=== PATIENT | female | born 1955 | race African-American/Black ===

== ENCOUNTER 2019-05-15 12:35 | Emergency (ER) | payer OTHER ==
[~2019-05-15] VITALS: Ht 167.6 cm; Wt 70.0 kg
[~2019-05-15 12:35] MED LIST: CARI3CAP PO; CITA40TA12 PO; TRAZ-123 PO
[2019-05-15 13:39] VITALS: BP 177/86
[2019-05-15] MEDS ORDERED: METH4TAB2 PO (14:17)
[2019-05-15] MEDS ORDERED: CYCL10TA2 PO (14:17)
[2019-05-15] MEDS ORDERED: DICL50TA2 PO (14:17)
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
== END 2019-05-15 14:28 | disposition home or self-care (01) ==
LOC: ER 12:35
DX: M54.5 Low back pain (principal); M79.18 Myalgia, other site; G89.11 Acute pain due to trauma; Z88.5 Allergy status to narcotic agent; Z88.6 Allergy status to analgesic agent; V49.59XA Passenger injured in collision with other motor vehicles in traffic accident, initial encounter; Y93.89 Activity, other specified; Y92.488 Other paved roadways as the place of occurrence of the external cause; Y99.8 Other external cause status
CPT/HCPCS: 99283

== ENCOUNTER 2020-08-11 10:19 | Inpatient (IN) | payer OTHER ==
[~2020-08-11] VITALS: Ht 165.1 cm; Wt 67.0 kg
[~2020-08-11 10:19] MED LIST changes: +CYCL10TA2 PO; +DICL50TA2 PO; +METH4TAB2 PO
--- NOTE | 2020-08-11 12:50 | RAD ---
XR CHEST 1V History: Short of breath Comparison: 07/23/2017 Technique: AP radiograph of the chest. Findings: The lungs are adequately and symmetrically inflated. No airspace consolidation, pleural effusion or p neumothorax. The cardiomediastinal silhouette and pulmonary vasculature are within normal limits. No acute osseous abnormality. Soft tissues are unremarkable. Impression: 1. No acute cardiopulmonary process. Electronically signed by: Elio Ruiz MD (08/11/2020 12:48 PM) [facility]
[2020-08-11 13:24] LABS: BASO % 0 % (0-3); EOS % 0 % (0-3); HEMATOCRIT 42.3 % (36.0-47.0); HEMOGLOBIN 14.6 g/dL (12.0-15.5); LYMPH # 0.7 x10^3/uL (1.0-4.8); LYMPH % 14 % (24-48); MEAN CORPUSCULAR HEMOGLOBIN 29 pg (25-35); MEAN CORPUSCULAR HGB CONC 35 g/dL (31-37); MEAN CORPUSCULAR VOLUME 84 fL (79-100); MONO # 0.5 x10^3/uL (0.0-1.1); MONO % 9 % (0-9); NEUT # 3.9 x10^3/uL (1.8-7.7); NEUT % 77 % (31-73); PLATELET COUNT 217 x10^3/uL (140-400); RED BLOOD COUNT 5.02 x10^6/uL (3.50-5.40); RED CELL DISTRIBUTION WIDTH 12.9 % (11.5-14.5); WHITE BLOOD COUNT 5.1 x10^3/uL (4.0-11.0)
[2020-08-11 13:32] LABS: INFLUENZA A PATIENT NEGATIVE (NEGATIVE); INFLUENZA B PATIENT NEGATIVE (NEGATIVE)
[2020-08-11 14:14] LABS: CALCIUM 8.4 mg/dL (8.5-10.1); GFR 67.5
[2020-08-11 14:22] LABS: ALBUMIN 3.1 g/dL (3.4-5.0); ALBUMIN/GLOBULIN RATIO 0.9 (1.0-1.7); TOTAL BILIRUBIN 0.3 mg/dL (0.2-1.0); TOTAL PROTEIN 6.5 g/dL (6.4-8.2)
[2020-08-11] MEDS ORDERED: HEPARIN for IV BOLUS 10,000 UNIT/10 ML VIAL. IV PRN (15:00)
[2020-08-11] MEDS ORDERED: HEPARIN 25,000UTS/250ML PREMIX 250 ML IV PRN (15:00)
[2020-08-11] MEDS ORDERED: CONTRAST GIVEN. MC PRN (15:15)
[2020-08-11] MEDS ORDERED: IOHEXOL 350 MG/ML 100 ML VIAL. IV ONE (15:15)
--- NOTE | 2020-08-11 15:39 | RAD ---
EXAM: CT chest with contrast - pulmonary embolus protocol CLINICAL HISTORY: chest pain/hemoptysis COMPARISON: None. TECHNIQUE: CT of the chest following the administration of intravenous contrast during the pulmonary arterial phase. Axial, coronal and sagittal reformatted images were generated including MIP images. ---PQRS compliance statement - One or more of the following individualized dose reduction techniques were utilized for this study: 1. Automated exposure control 2. Adjustment of the mA and/or kV according to patient size 3. Use of iterative reconstruction technique--- FINDINGS: CHEST: Diagnostic quality: Adequate contrast bolus although motion artifact limits evaluation. Pulmonary emboli: No pulmonary emboli to the level of the proximal subsegmental branches. More perip heral vessels are not well assessed. Right heart strain: None Pulmonary arteries: Normal in caliber. Heart is not enlarged. Apparent thickening of the left ventricular myocardium, left ventricular hyper trophy is suspected and can be correlated with echocardiogram. No pericardial effusion. No pleural ef fusion or pneumothorax. No axillary lymphadenopathy. Mediastinal and hilar lymphadenopathy. For example a employment program representative left hilar lymph node measures 1.6 x 1 cm. AP window lymph node measures 1.5 x 1.2 cm. Right hilar lymph node measures 1.3 x 1 cm. Precarinal lymph node measures 1.6 x 1.1 cm. Bilateral emphysematous changes are seen. Groundglass and patchy parenchymal opacities are seen promi nent in the lower lobes, lingula and middle lobe. No definite suspicious lung nodule or mass is seen. Visualized Upper abdomen: Unremarkable Bones: No aggressive osseous lesion is seen. IMPRESSION: 1. No evidence for acute pulmonary embolus to the level of the proximal subsegmental branches. More peripheral vessels are not well assessed. 2. Apparent thickening of the left ventricular myocardium, left ventricular hypertrophy is suspected and can be correlated with echocardiogram. 3. Groundglass and patchy parenchymal opacities, predominantly in the lower lobes, lingula and middl e lobe, suspicious for multifocal consolidative process such as pneumonia. Imaging follow-up to resol ution is recommended to exclude underlying mass. 4. Mediastinal and hilar lymphadenopathy is favored to be reactive given the parenchymal opacities h owever recommend close attention on follow-up. Electronically signed by: Yoav Jennings MD (08/11/2020 3:36 PM) [facility]
--- NOTE | 2020-08-11 15:52 | PHYS DOC ---
Past Medical History Past Medical History: Anxiety, Depression, Other Additional Past Medical Histor: SUICIDAL IDEATION/VISUAL/AUDITORY HALLUCIN ATIONS Past Surgical History: Oophorectomy Smoking Status: Current Every Day Smoker Additional Information: SMOKES 2 CIGARETTES A DAY Alcohol Use: Sober Drug Use: None Adult General Chief Complaint Chief Complaint: WEAKNESS/GENERALIZED HPI HPI Patient is a 65 year old female with a past medical history of anxiety and depression now presents emergency department complaining of new onset of cough. Patient states that over the last 3 days she developed worsening sensation of cough as nonproductive of any sputum but is also been associated with increase in station of shortness of breath. Patient states that over the last day she has developed lack of taste, anosmia and sensation of generalized achiness. Patient states that she is no longer comfortable at home and is feeling weak and having difficulty getting around. Denies any chest pain, nausea, vomiting, numbness or weakness. Review of Systems Review of Systems Constitutional: Denies fever or chills [] Eyes: Denies change in visual acuity, redness, or eye pain [] HENT: Denies nasal congestion or sore throat [] Respiratory: Denies cough or shortness of breath [] Cardiovascular: No additional information not addressed in HPI [] GI: Denies abdominal pain, nausea, vomiting, bloody stools or diarrhea [] : Denies dysuria or hematuria [] Musculoskeletal: Denies back pain or joint pain [] Integument: Denies rash or skin lesions [] Neurologic: Denies headache, focal weakness or sensory changes [] Endocrine: Denies polyuria or polydipsia [] All other systems were reviewed and found to be within normal limits, except as documented in this note. Current Medications Current Medications Current Medications Medications (Trade) Dose Ordered Sig/Brock Start Time Stop Time Status Last Admin Dose Admin Heparin Sodium (Porcine) (Heparin Sodium) 1,700 unit PRN Q6HRS PRN 08/11/20 15:00 Heparin Sodium/ Dextrose 250 ml @ 0 mls/hr CONT PRN 08/11/20 15:00 08/11/20 15:47 8.3 MLS/HR Info (CONTRAST GIVEN -- Rx MONITORING) 1 each PRN DAILY PRN 08/11/20 15:15 08/13/20 15:14 Iohexol (Omnipaque 350 Mg/ml) 90 ml 1X ONCE 08/11/20 15:15 08/11/20 15:16 DC 08/11/20 15:21 90 ML Allergies Allergies Allergies Coded Allergies Type Severity Reaction Last Updated Verified acetaminophen Allergy Intermediate 07/23/17 Yes hydrocodone Allergy Intermediate 07/23/17 Yes Physical Exam Physical Exam Constitutional: Well developed, well nourished, no acute distress, non-toxic appearance. [] HENT: Normocephalic, atraumatic, bilateral external ears normal, oropharynx moist, no oral exudates, nose normal. [] Eyes: PERRLA, EOMI, conjunctiva normal, no discharge. [] Neck: Normal range of motion, no tenderness, supple, no stridor. [] Cardiovascular:Heart rate regular rhythm, no murmur [] Lungs & Thorax: Bilateral breath sounds clear to auscultation [] Abdomen: Bowel sounds normal, soft, no tenderness, no masses, no pulsatile m asses. [] Skin: Warm, dry, no erythema, no rash. [] Back: No tenderness, no CVA tenderness. [] Extremities: No tenderness, no cyanosis, no clubbing, ROM intact, no edema. [] Neurologic: Alert and oriented X 3, normal motor function, normal sensory function, no focal deficits noted. [] Psychologic: Affect normal, judgement normal, mood normal. [] Current Patient Data Vital Signs Vital Signs Date Time Temp Pulse Resp B/P (MAP) Pulse Ox O2 Delivery O2 Flow Rate FiO2 08/11/20 14:58 82 131/70 (90) 93 Nasal Cannula 2.0 08/11/20 12:01 99.4 24 99.4 Lab Values Laboratory Tests Test 08/11/20 12:13 08/11/20 12:58 08/11/20 13:06 08/11/20 13:40 Glucose (Fingerstick) 112 mg/dL (70-99) H Influenza Type A Antigen Negative (NEGATIVE) Influenza Type B Antigen Negative (NEGATIVE) SARS-CoV-2 RNA (HOLLI) Positive (Negative) A White Blood Count 5.1 x10^3/uL (4.0-11.0) Red Blood Count 5.02 x10^6/uL (3.50-5.40) Hemoglobin 14.6 g/dL (12.0-15.5) Hematocrit 42.3 % (36.0-47.0) Mean Corpuscular Volume 84 fL (79-100) Mean Corpuscular Hemoglobin 29 pg (25-35) Mean Corpuscular Hemoglobin Concent 35 g/dL (31-37) Red Cell Distribution Width 12.9 % (11.5-14.5) Platelet Count 217 x10^3/uL (140-400) Neutrophils (%) (Auto) 77 % (31-73) H Lymphocytes (%) (Auto) 14 % (24-48) L Monocytes (%) (Auto) 9 % (0-9) Eosinophils (%) (Auto) 0 % (0-3) Basophils (%) (Auto) 0 % (0-3) Neutrophils # (Auto) 3.9 x10^3/uL (1.8-7.7) Lymphocytes # (Auto) 0.7 x10^3/uL (1.0-4.8) L Monocytes # (Auto) 0.5 x10^3/uL (0.0-1.1) Eosinophils # (Auto) 0.0 x10^3/uL (0.0-0.7) Basophils # (Auto) 0.0 x10^3/uL (0.0-0.2) D-Dimer (Umm) 0.90 ug/mlFEU (0.00-0.50) H Sodium Level 140 mmol/L (136-145) Potassium Level 4.0 mmol/L (3.5-5.1) Chloride Level 101 mmol/L (98-107) Carbon Dioxide Level 29 mmol/L (21-32) Anion Gap 10 (6-14) Blood Urea Nitrogen 7 mg/dL (7-20) Creatinine 1.0 mg/dL (0.6-1.0) Estimated GFR (Cockcroft-Gault) 67.5 BUN/Creatinine Ratio 7 (6-20) Glucose Level 103 mg/dL (70-99) H Calcium Level 8.4 mg/dL (8.5-10.1) L Total Bilirubin 0.3 mg/dL (0.2-1.0) Aspartate Amino Transferase (AST) 31 U/L (15-37) Alanine Aminotransferase (ALT) 17 U/L (14-59) Alkaline Phosphatase 46 U/L (46-116) Creatine Kinase 229 U/L (26-192) H Troponin I Quantitative 0.566 ng/mL (0.000-0.055) GT-Ldm-S-Type Natriuretic Peptide 31 pg/mL (0-124) Total Protein 6.5 g/dL (6.4-8.2) Albumin 3.1 g/dL (3.4-5.0) L Albumin/Globulin Ratio 0.9 (1.0-1.7) L Laboratory Tests 08/11/20 13:06 Laboratory Tests 08/11/20 13:40 EKG EKG [] Radiology/Procedures Radiology/Procedures EXAM: CT chest with contrast - pulmonary embolus protocol CLINICAL HISTORY: chest pain/hemoptysis COMPARISON: None. TECHNIQUE: CT of the chest following the administration of intravenous contrast during the pulmonary arterial phase. Axial, coronal and sagittal reformatted images were generated including MIP images. ---PQRS compliance statement - One or more of the following individualized dose reduction techniques were utilized for this study: 1. Automated exposure control 2. Adjustment of the mA and/or kV according to patient size 3. Use of iterative reconstruction technique--- FINDINGS: CHEST: Diagnostic quality: Adequate contrast bolus although motion artifact limits lidia luation. Pulmonary emboli: No pulmonary emboli to the level of the proximal subsegmental branches. More peripheral vessels are not well assessed. Right heart strain: None Pulmonary arteries: Normal in caliber. Heart is not enlarged. Apparent thickening of the left ventricular myocardium, left ventricular hypertrophy is suspected and can be correlated with echocardiogram. No pericardial effusion. No pleural effusion or pneumothorax. No axillary lymphadenopathy. Mediastinal and hilar lymphadenopathy. For example a sales representative consultant left hilar lymph node measures 1.6 x 1 cm. AP window lymph node measures 1.5 x 1.2 cm. Right hilar lymph node measures 1.3 x 1 cm. Precarinal lymph node measures 1.6 x 1.1 cm. Bilateral emphysematous changes are seen. Groundglass and patchy parenchymal opacities are seen prominent in the lower lobes, lingula and middle lobe. No definite suspicious lung nodule or mass is seen. Visualized Upper abdomen: Unremarkable Bones: No aggressive osseous lesion is seen. IMPRESSION: 1. No evidence for acute pulmonary embolus to the level of the proximal subsegmental branches. More peripheral vessels are not well assessed. 2. Apparent thickening of the left ventricular myocardium, left ventricular hypertrophy is suspected and can be correlated with echocardiogram. 3. Groundglass and patchy parenchymal opacities, predominantly in the lower lobes, lingula and middle lobe, suspicious for multifocal consolidative process such as pneumonia. Imaging follow-up to resolution is recommended to exclude underlying mass. 4. Mediastinal and hilar lymphadenopathy is favored to be reactive given the parenchymal opacities however recommend close attention on follow-up. Electronically signed by: Yoav Jennings MD (08/11/2020 3:36 PM) [facility] Course & Med Decision Making Course & Med Decision Making Pertinent Labs and Imaging studies reviewed. (See chart for details) 65-year-old female presenting the emergency department for new onset of constellation of symptoms most consistent with acute viral syndrome which does raise concern for COVID-19 pneumonia. Initial arrival patient noted to have normal oxygenation but will obtain chest x-ray and labs to make sure there is no need for additional work-up. Initial blood work did demonstrate mildly elevated troponin. Repeat EKG does show some lateral T wave inversions. Patient also noted to have a mildly elevated D-dimer so CT scan was obtained which does demonstrate groundglass opacities. Patient started on heparin drip for concern for NSTEMI and cardiology consultation was obtained. At this time will need to admit the patient for oxygen and monitoring as well as further cardiology evaluation. Dragon Disclaimer Dragon Disclaimer This electronic medical record was generated, in whole or in part, using a voice recognition dictation system. Departure Departure Impression: Primary Impression: NSTEMI (non-ST elevated myocardial infarction) Additional Impressions: COVID-19 Acute respiratory failure with hypoxia Disposition: ADMITTED INPATIENT Condition: STABLE Referrals: NO PCP (PCP) Problem Qualifiers VONNIE KELLEY MD Aug 11, 2020 15:52
--- NOTE | 2020-08-11 15:59 | PDOC2 ---
CARLOS ALLEN BUCKET TURNER 08/11/20 1559: CARDIAC CONSULT DATE OF CONSULT Date of Consult DATE: 08/11/20 TIME: 15:39 REASON FOR CONSULT Reason for Consult: eLEVATED TROPONIN REFERRING PHYSICIAN Referring Physician: Armin SOURCE Source: Chart review, Patient HISTORY OF PRESENT ILLNESS HISTORY OF PRESENT ILLNESS This is a 65 yo female admitted for complains of GI symptoms and cough. Reports of fever chills with associated nausea vomiting and diarrhea. Also + for anosmia and SOA. Also complains of sharp chest pain with associated coughing. Further test revealed +covid-19 per rapid test. No prior hx of CAD and significant for past ETOH and cocaine abuse. Also with weakness. She believed she got exposed to a friend who was noted positive several weeks ago. She also smokes tobacco , marijuana and cocaine and last use was 4 days ago. Denies any palpitations or dizziness. PAST MEDICAL HISTORY Cardiovascular: HTN, Hyperlipidemia Pulmonary: No pertinent hx CENTRAL NERVOUS SYSTEM: Other (No pertinent history) GI: No pertinent hx Heme/Onc: No pertinent hx Hepatobiliary: No pertinent hx Psych: Other (Anxiety, Depression, Psychosis (suicidal ideation, visual hallucination and auditory as well), Other (alcoholism)) Musculoskeletal: Osteoarthritis Rheumatologic: No pertinent hx Infectious disease: No pertinent hx ENT: No pertinent hx Renal/: No pertinent hx Endocrine: No pertinent hx Dermatology: No pertinent hx PAST SURGICAL HISTORY Past Surgical History: Other (oophrectomy) FAMILY HISTORY Family History: Heart Disease (mother) SOCIAL HISTORY Social History hx of ETOH and cocaine abuse Smoke: <1 pack per day Drugs: Cocaine, Marijuana Lives: with Family CURRENT MEDICATIONS CURRENT MEDICATIONS Current Medications Medications (Trade) Dose Ordered Sig/Brock Route PRN Reason Start Time Stop Time Status Last Admin Dose Admin Iohexol (Omnipaque 350 Mg/ml) 90 ml 1X ONCE IV 08/11/20 15:15 08/11/20 15:16 DC 08/11/20 15:21 ALLERGIES ALLERGIES: Coded Allergies: acetaminophen (Verified Allergy, Intermediate, 07/23/17) hydrocodone (Verified Allergy, Intermediate, 07/23/17) ROS Review of System 14 point ROS evaluated with pertinent positives noted per HPI PHYSICAL EXAM General: Alert, Oriented X3, Cooperative, No acute distress HEENT: Mucous membr. moist/pink Lungs: Other (diminiished) Heart: Regular rate (SR), Normal S1, Normal S2, Other (2/y ssytolic murmur to LLS border) Abdomen: No tenderness Extremities: No cyanosis, No edema Skin: No breakdown, No significant lesion Neuro: Normal speech, Sensation intact Psych/Mental Status: Mental status NL, Mood NL MUSCULOSKELETAL: Osteoarthritic changes both hands VITALS/I&O VITALS/I&O: Vital Signs Date Time Temp Pulse Resp B/P (MAP) Pulse Ox O2 Delivery O2 Flow Rate FiO2 08/11/20 14:58 82 131/70 (90) 93 Nasal Cannula 2.0 08/11/20 12:01 99.4 24 99.4 LABS Lab: Laboratory Tests Test 08/11/20 12:13 08/11/20 12:58 08/11/20 13:06 08/11/20 13:40 Glucose (Fingerstick) 112 mg/dL (70-99) H Influenza Type A Antigen Negative (NEGATIVE) Influenza Type B Antigen Negative (NEGATIVE) SARS-CoV-2 RNA (HOLLI) Positive (Negative) A White Blood Count 5.1 x10^3/uL (4.0-11.0) Red Blood Count 5.02 x10^6/uL (3.50-5.40) Hemoglobin 14.6 g/dL (12.0-15.5) Hematocrit 42.3 % (36.0-47.0) Mean Corpuscular Volume 84 fL (79-100) Mean Corpuscular Hemoglobin 29 pg (25-35) Mean Corpuscular Hemoglobin Concent 35 g/dL (31-37) Red Cell Distribution Width 12.9 % (11.5-14.5) Platelet Count 217 x10^3/uL (140-400) Neutrophils (%) (Auto) 77 % (31-73) H Lymphocytes (%) (Auto) 14 % (24-48) L Monocytes (%) (Auto) 9 % (0-9) Eosinophils (%) (Auto) 0 % (0-3) Basophils (%) (Auto) 0 % (0-3) Neutrophils # (Auto) 3.9 x10^3/uL (1.8-7.7) Lymphocytes # (Auto) 0.7 x10^3/uL (1.0-4.8) L Monocytes # (Auto) 0.5 x10^3/uL (0.0-1.1) Eosinophils # (Auto) 0.0 x10^3/uL (0.0-0.7) Basophils # (Auto) 0.0 x10^3/uL (0.0-0.2) D-Dimer (Umm) 0.90 ug/mlFEU (0.00-0.50) H Sodium Level 140 mmol/L (136-145) Potassium Level 4.0 mmol/L (3.5-5.1) Chloride Level 101 mmol/L (98-107) Carbon Dioxide Level 29 mmol/L (21-32) Anion Gap 10 (6-14) Blood Urea Nitrogen 7 mg/dL (7-20) Creatinine 1.0 mg/dL (0.6-1.0) Estimated GFR (Cockcroft-Gault) 67.5 BUN/Creatinine Ratio 7 (6-20) Glucose Level 103 mg/dL (70-99) H Calcium Level 8.4 mg/dL (8.5-10.1) L Total Bilirubin 0.3 mg/dL (0.2-1.0) Aspartate Amino Transferase (AST) 31 U/L (15-37) Alanine Aminotransferase (ALT) 17 U/L (14-59) Alkaline Phosphatase 46 U/L (46-116) Creatine Kinase 229 U/L (26-192) H Troponin I Quantitative 0.566 ng/mL (0.000-0.055) OP-Ahp-I-Type Natriuretic Peptide 31 pg/mL (0-124) Total Protein 6.5 g/dL (6.4-8.2) Albumin 3.1 g/dL (3.4-5.0) L Albumin/Globulin Ratio 0.9 (1.0-1.7) L Laboratory Tests 08/11/20 13:06 Laboratory Tests 08/11/20 13:40 ECHOCARDIOGRAM ECHOCARDIOGRAM <Conclusion> There is moderate concentric left ventricular hypertrophy. The left ventricular systolic function is normal and the ejection fraction is within normal range. The Ejection Fraction is 60-65%. There is normal LV segmental wall motion. The aortic valve is calcified with restricted leaflet motion. DATE: 07/24/17 1609 ASSESSMENT/PLAN ASSESSMENT/PLAN 1. Covid-19 pneumonia 2. Diarrhea/vomiting with fever and anosmia 3. HTN: no home meds 4. HLP: no meds 5. Hx of ETOH and cocaine abuse 6. NSTEMI: suspect type 2 initial troponin at 0.56 with associated covid-19 and cocaine abuse. CTA negative for PE. EKG SR with with LVH, no acute changes by comparison 7. Atypical CP: likely due to coughing 8. Hx of anxiety/depression and SI 9. Polysubstance abuse: marijuana and cocaine last use 4 days ago 10. Tobaccoism Recommendation 1. Lovenox x1. DC heparin. ASA 2. Trend troponin. TTE as an outpt 3. Covid-19 treatment oer PCP 4. Smoking cessation and lifestyle modification including abstinence from recreational drug use. 5. Supportive care. 6. MOnitor BP trend and will place on regimen per trend. LUCITA JOHNS MD 08/12/20 0932: CARDIAC CONSULT ASSESSMENT/PLAN ASSESSMENT/PLAN Patient seen and evaluated on 08/11/2020. I agree with our nurse practitioners assessment and plan. Covid-19 pneumonia. Continue as per guidelines. Lovenox started. HTN: Will start medications as needed. Hx of ETOH and cocaine abuse. Last use approximately 4 days ago. NSTEMI: suspect type 2 initial troponin at 0.56 with associated covid-19 and cocaine abuse. CTA negative for PE. EKG SR with with LVH, no acute changes by comparison. Outpatient echo as per Covid protocols. Hx of anxiety/depression CARLOS ALLEN BUCKET TURNER Aug 11, 2020 15:59 LUCITA JOHNS MD Aug 12, 2020 09:32
--- NOTE | 2020-08-11 16:29 | PDOC1 ---
History and Physical Date of Admission Date of Admission DATE: 08/11/20 TIME: 16:22 Identification/Chief Complaint Chief Complaint Fever and chills Source Source: Chart review, Patient History of Present Illness History of Present Illness Ms Mcadams is a 65 yo female w/ PMHx HTN, HLD, anxiety, depression, ETOH and cocaine abuse who presents to the ED on 08/11/2020 for complains of fever and cough that started on 08/06/2020. Reports of fever chills with associated nausea vomiting and diarrhea that began over the past day. She also notes anosmia and some loss of appetite. She notes sharp chest pain with associated coughing. She notes a Covid exposure about a week ago from a friend who stayed with her after her discharge from the hospital for Covid and she was unaware of this. In ED she is visibly uncomfortable and itching. ED staff noted she was in respiratory distress and desaturated to 88% on room air was placed on O2. EKG appears sinus tachycardia with rate of 96 bpm left axis deviation. Of S1, S2-S3 pattern, left anterior fascicular block. Similar to prior EKG. She tested +covid-19 per rapid test. She does endorse heavy cocaine and alcohol use history but notes a lot her last use was 4 days ago. WBC 5.1, Hb 14.6, platelets 217, NA 140, K4, BUN 7, CR 1, glucose 103, CK 229, albumin 3.1, NT-Pro-BNP 31, urine drug screen positive for cocaine, Troponin 0.566 Given lovenox and admitted for further care. Past Medical History Cardiovascular: HTN, Hyperlipidemia Pulmonary: No pertinent hx Psych: Other (Anxiety, Depression, Psychosis (suicidal ideation, visual hallucination and auditory as well), Other (alcoholism)) Musculoskeletal: Osteoarthritis Renal/: No pertinent hx Endocrine: No pertinent hx Past Surgical History Past Surgical History: Other (oophrectomy) Family History Family History: Family History Unknown Family History: Parent Social History Smoke: 1 pack per day ALCOHOL: heavy Drugs: Cocaine Current Problem List Problem List Problems Medical Problems: (1) Acute respiratory failure with hypoxia Status: Acute (2) COVID-19 Status: Acute (3) NSTEMI (non-ST elevated myocardial infarction) Status: Acute Current Medications Current Medications Current Medications Heparin Sodium/ Dextrose 250 ml @ 0 mls/hr CONT PRN IV PER PROTOCOL Last administered on 08/11/20at 15:47; Start 08/11/20 at 15:00; Stop 08/11/20 at 16:15; Status DC Heparin Sodium (Porcine) (Heparin Sodium) 1,700 unit PRN Q6HRS PRN IV FOR UFH LEVEL LESS THAN 0.2; Start 08/11/20 at 15:00; Stop 08/11/20 at 16:15; Status DC Iohexol (Omnipaque 350 Mg/ml) 90 ml 1X ONCE IV Last administered on 08/11/20at 15:21; Start 08/11/20 at 15:15; Stop 08/11/20 at 15:16; Status DC Info (CONTRAST GIVEN -- Rx MONITORING) 1 each PRN DAILY PRN MC SEE COMMENTS; Start 08/11/20 at 15:15; Stop 08/13/20 at 15:14 Enoxaparin Sodium (Lovenox Per Pharmacy Treatment Dosing) 1 each PRN DAILY PRN MC SEE COMMENTS; Start 08/11/20 at 16:15 Enoxaparin Sodium (Lovenox 80mg Syringe) 70 mg Q12HR SQ ; Start 08/11/20 at 16:30 Active Scripts Active Cyclobenzaprine Hcl 10 Mg Tablet 1 Tab PO TID Diclofenac Potassium 50 Mg Tablet 1 Tab PO BID Medrol (Methylprednisolone) 4 Mg Tab.ds.pk 1 Pkg PO UD Reported Vraylar (Cariprazine Hydrochloride) 3 Mg Capsule 3 Mg PO Celexa (Citalopram Hydrobromide) 40 Mg Tablet 1 Tab PO DAILY Trazodone Hcl 100 Mg Tablet 1 Tab PO QHS Allergies Allergies: Coded Allergies: acetaminophen (Verified Allergy, Intermediate, 07/23/17) hydrocodone (Verified Allergy, Intermediate, 07/23/17) ROS General: YES: Fatigue, Malaise, Appetite; No: Chills, Night Sweats, Other PSYCHOLOGICAL ROS: YES: Anxiety; No: Behavioral Disorder, Concentration difficultie, Decreased libido, Depression, Disorientation, Hallucinations, Hostility, Irritablity, Memory difficulties, Mood Swings, Obsessive thoughts, Physical abuse, Sexual abuse, Sleep disturbances, Suicidal ideation, Other Eyes: No Blurry vision, No Decreased vision, No Double vision, No Dry eyes, No Excessive tearing, No Eye Pain, No Itchy Eyes, No Loss of vision, No Photophobia, No Scotomata, No Uses contacts, No Uses glasses, No Other HEENT: No: Heacaches, Visual Changes, Hearing change, Nasal congestion, Nasal discharge, Oral lesions, Sinus pain, Sore Throat, Epistaxis, Sneezing, Snoring, Tinnitus, Vertigo, Vocal changes, Other ALLERGY AND IMMUNOLOGY: No: Hives, Insect Bite Sensitivity, Itchy/Watery Eyes, Nasal Congestion, Post Nasal Drip, Seasonal Allergies, Other Hematological and Lymphatic: No: Bleeding Problems, Blood Clots, Blood Transfusions, Brusing, Night Sweats, Pallor, Swollen Lymph Nodes, Other ENDOCRINE: No: Breast Changes, Galactorrhea, Hair Pattern Changes, Hot Flashes, Malaise/lethargy, Mood Swings, Palpitations, Polydipsia/polyuria, Skin Changes, Temperature Intolerance, Unexpected Weight Changes, Other Breast: No New/Changing Breast Lumps, No Nipple changes, No Nipple discharge, No Other Respiratory: YES: Shortness of breath, SOB with excertion; No: Cough, Hemoptysis, Orthopnea, Pleuritic Pain, Sputum Changes, Stridor, Tachypnea, Wheezing, Other Cardiovascular: No Chest Pain, No Palpitations, No Orthopnea, No Paroxysmal Noc. Dyspnea, No Edema, No Lt Headedness, No Other Gastrointestinal: Yes Nausea, Yes Abdominal Pain, Yes Diarrhea; No Vomiting, No Constipation, No Melena, No Hematochezia, No Other Genitourinary: No Dysuria, No Frequency, No Incontinence, No Hematuria, No Retention, No Discharge, No Urgency, No Pain, No Flank Pain, No Other, No , No , No , No , No , No , No Musculoskeletal: No Gait Disturbance, No Joint Pain, No Joint Stiffness, No Joint Swelling, No Muscle Pain, No Muscular Weakness, No Pain In:, No Swelling In:, No Other Neurological: No Behavorial Changes, No Bowel/Bladder ControlChng, No C onfusion, No Dizziness, No Gait Disturbance, No Headaches, No Impaired Coord/balance, No Memory Loss, No Numbness/Tingling, No Seizures, No Speech Problems, No Tremors, No Visual Changes, No Weakness, No Other Skin: No Dry Skin, No Eczema, No Hair Changes, No Lumps, No Mole Changes, No Mottling, No Nail Changes, No Pruritus, No Rash, No Skin Lesion Changes, No Other, No Acne Physical Exam General: Alert, Oriented X3, Cooperative, No acute distress Vitals Vitals Vital Signs Date Time Temp Pulse Resp B/P (MAP) Pulse Ox O2 Delivery O2 Flow Rate FiO2 08/11/20 14:58 82 131/70 (90) 93 Nasal Cannula 2.0 08/11/20 12:01 99.4 24 99.4 Labs Labs Laboratory Tests Test 08/11/20 12:13 08/11/20 12:58 08/11/20 13:06 08/11/20 13:40 Glucose (Fingerstick) 112 mg/dL (70-99) Influenza Type A Antigen Negative (NEGATIVE) Influenza Type B Antigen Negative (NEGATIVE) SARS-CoV-2 RNA (HOLLI) Positive (Negative) White Blood Count 5.1 x10^3/uL (4.0-11.0) Red Blood Count 5.02 x10^6/uL (3.50-5.40) Hemoglobin 14.6 g/dL (12.0-15.5) Hematocrit 42.3 % (36.0-47.0) Mean Corpuscular Volume 84 fL (79-100) Mean Corpuscular Hemoglobin 29 pg (25-35) Mean Corpuscular Hemoglobin Concent 35 g/dL (31-37) Red Cell Distribution Width 12.9 % (11.5-14.5) Platelet Count 217 x10^3/uL (140-400) Neutrophils (%) (Auto) 77 % (31-73) Lymphocytes (%) (Auto) 14 % (24-48) Monocytes (%) (Auto) 9 % (0-9) Eosinophils (%) (Auto) 0 % (0-3) Basophils (%) (Auto) 0 % (0-3) Neutrophils # (Auto) 3.9 x10^3/uL (1.8-7.7) Lymphocytes # (Auto) 0.7 x10^3/uL (1.0-4.8) Monocytes # (Auto) 0.5 x10^3/uL (0.0-1.1) Eosinophils # (Auto) 0.0 x10^3/uL (0.0-0.7) Basophils # (Auto) 0.0 x10^3/uL (0.0-0.2) D-Dimer (Umm) 0.90 ug/mlFEU (0.00-0.50) Sodium Level 140 mmol/L (136-145) Potassium Level 4.0 mmol/L (3.5-5.1) Chloride Level 101 mmol/L (98-107) Carbon Dioxide Level 29 mmol/L (21-32) Anion Gap 10 (6-14) Blood Urea Nitrogen 7 mg/dL (7-20) Creatinine 1.0 mg/dL (0.6-1.0) Estimated GFR (Cockcroft-Gault) 67.5 BUN/Creatinine Ratio 7 (6-20) Glucose Level 103 mg/dL (70-99) Calcium Level 8.4 mg/dL (8.5-10.1) Total Bilirubin 0.3 mg/dL (0.2-1.0) Aspartate Amino Transf (AST/SGOT) 31 U/L (15-37) Alanine Aminotransferase (ALT/SGPT) 17 U/L (14-59) Alkaline Phosphatase 46 U/L (46-116) Creatine Kinase 229 U/L (26-192) Troponin I Quantitative 0.566 ng/mL (0.000-0.055) VR-Jyd-S-Type Natriuretic Peptide 31 pg/mL (0-124) Total Protein 6.5 g/dL (6.4-8.2) Albumin 3.1 g/dL (3.4-5.0) Albumin/Globulin Ratio 0.9 (1.0-1.7) Laboratory Tests Test 08/11/20 12:13 08/11/20 12:58 08/11/20 13:06 08/11/20 13:40 Glucose (Fingerstick) 112 mg/dL (70-99) Influenza Type A Antigen Negative (NEGATIVE) Influenza Type B Antigen Negative (NEGATIVE) SARS-CoV-2 RNA (HOLLI) Positive (Negative) White Blood Count 5.1 x10^3/uL (4.0-11.0) Red Blood Count 5.02 x10^6/uL (3.50-5.40) Hemoglobin 14.6 g/dL (12.0-15.5) Hematocrit 42.3 % (36.0-47.0) Mean Corpuscular Volume 84 fL (79-100) Mean Corpuscular Hemoglobin 29 pg (25-35) Mean Corpuscular Hemoglobin Concent 35 g/dL (31-37) Red Cell Distribution Width 12.9 % (11.5-14.5) Platelet Count 217 x10^3/uL (140-400) Neutrophils (%) (Auto) 77 % (31-73) Lymphocytes (%) (Auto) 14 % (24-48) Monocytes (%) (Auto) 9 % (0-9) Eosinophils (%) (Auto) 0 % (0-3) Basophils (%) (Auto) 0 % (0-3) Neutrophils # (Auto) 3.9 x10^3/uL (1.8-7.7) Lymphocytes # (Auto) 0.7 x10^3/uL (1.0-4.8) Monocytes # (Auto) 0.5 x10^3/uL (0.0-1.1) Eosinophils # (Auto) 0.0 x10^3/uL (0.0-0.7) Basophils # (Auto) 0.0 x10^3/uL (0.0-0.2) D-Dimer (Umm) 0.90 ug/mlFEU (0.00-0.50) Sodium Level 140 mmol/L (136-145) Potassium Level 4.0 mmol/L (3.5-5.1) Chloride Level 101 mmol/L (98-107) Carbon Dioxide Level 29 mmol/L (21-32) Anion Gap 10 (6-14) Blood Urea Nitrogen 7 mg/dL (7-20) Creatinine 1.0 mg/dL (0.6-1.0) Estimated GFR (Cockcroft-Gault) 67.5 BUN/Creatinine Ratio 7 (6-20) Glucose Level 103 mg/dL (70-99) Calcium Level 8.4 mg/dL (8.5-10.1) Total Bilirubin 0.3 mg/dL (0.2-1.0) Aspartate Amino Transf (AST/SGOT) 31 U/L (15-37) Alanine Aminotransferase (ALT/SGPT) 17 U/L (14-59) Alkaline Phosphatase 46 U/L (46-116) Creatine Kinase 229 U/L (26-192) Troponin I Quantitative 0.566 ng/mL (0.000-0.055) ST-Tjt-A-Type Natriuretic Peptide 31 pg/mL (0-124) Total Protein 6.5 g/dL (6.4-8.2) Albumin 3.1 g/dL (3.4-5.0) Albumin/Globulin Ratio 0.9 (1.0-1.7) Images Images Chest radiograph: The lungs are adequately and symmetrically inflated. No airspace consolidation, pleural effusion or pneumothorax. The cardiomediastinal silhouette and pulmonary vasculature are within normal limits. No acute osseous abnormality. Soft tissues are unremarkable. Impression: 1. No acute cardiopulmonary process. CTPA: CHEST: Diagnostic quality: Adequate contrast bolus although motion artifact limits evaluation. Pulmonary emboli: No pulmonary emboli to the level of the proximal subsegmental branches. More peripheral vessels are not well assessed. Right heart strain: None Pulmonary arteries: Normal in caliber. Heart is not enlarged. Apparent thickening of the left ventricular myocardium, left ventricular hypertrophy is suspected and can be correlated with echocardiogram. No pericardial effusion. No pleural effusion or pneumothorax. No axillary lymphadenopathy. Mediastinal and hilar lymphadenopathy. For example a commercial representative left hilar lymph node measures 1.6 x 1 cm. AP window lymph node measures 1.5 x 1.2 cm. Right hilar lymph node measures 1.3 x 1 cm. Precarinal lymph node measures 1.6 x 1.1 cm. Bilateral emphysematous changes are seen. Groundglass and patchy parenchymal opacities are seen prominent in the lower lobes, lingula and middle lobe. No definite suspicious lung nodule or mass is seen. Visualized Upper abdomen: Unremarkable Bones: No aggressive osseous lesion is seen. IMPRESSION: 1. No evidence for acute pulmonary embolus to the level of the proximal subsegmental branches. More peripheral vessels are not well assessed. 2. Apparent thickening of the left ventricular myocardium, left ventricular hypertrophy is suspected and can be correlated with echocardiogram. 3. Groundglass and patchy parenchymal opacities, predominantly in the lower lobes, lingula and middle lobe, suspicious for multifocal consolidative process such as pneumonia. Imaging follow-up to resolution is recommended to exclude underlying mass. 4. Mediastinal and hilar lymphadenopathy is favored to be reactive given the parenchymal opacities however recommend close attention on follow-up. VTE Prophylaxis Ordered VTE Prophylaxis Devices: No VTE Pharmacological Prophylaxi: Yes Assessment/Plan Assessment/Plan A/P: Chest pain - likely costochondritis due to cough, and viral pneumonia from COVID, will trend troponins. No STEMI NSTEMI - likely type 2 demand ischemia, initial trop 0.56. CTPA negative for PE. EKG SR with with LVH, no acute changes by comparison. D/w cardiology will start therapeutic lovenox Covid-19 pneumonia - no significant hypoxia. Will continue supportive care. If O2 saturations drop will initiate steroids and remdesivir, but they are currently not indicated for mild COVID Diarrhea/vomiting with fever and anosmia - COVID related, will give supportive care. HTN - no home meds HLD - no meds Hx of ETOH and cocaine abuse - counseled on cessation Hx of anxiety/depression and SI - has BP disorder meds, will replace vraylar with zyprexa, trazodone FEN - Regular diet PPX - lovenox FULL CODE DIspo - inpatient for above COVID-19 CRITERIA: The patient was evaluated during the global COVID-19 pandemic, and that diagnosis was suspected/considered upon their initial presentation. Their evaluation, treatment and testing was consistent with current guidelines for patients who present with complaints or symptoms that may be related to COVID-19. Justifications for Admission Other Justification JANIS BUSH MD Aug 11, 2020 16:29
[2020-08-11] MEDS ORDERED: MORPHINE SULFATE 4 MG/ML VIAL. IV PRN (16:30)
[2020-08-11] MEDS ORDERED: ONDANSETRON PF 4 MG/2 ML VIAL. IV PRN (16:30)
[2020-08-11 16:38] LABS: BILIRUBIN,URINE NEGATIVE (NEG); CLARITY,URINE CLEAR; COLOR,URINE YELLOW; NITRITE,URINE NEGATIVE (NEG); PH,URINE 5.5 (<5.0-8.0); PROTEIN,URINE 100 mg/dL (NEG-TRACE); UROBILINOGEN,URINE 0.2 mg/dL (0.2 mg/dL)
[2020-08-11 16:39] LABS: BACTERIA,URINE 0 /HPF (0-FEW); BARBITURATES NEG (NEG); BENZODIAZEPINES NEG (NEG); CANNABINOIDS NEG (NEG); COCAINE POS (NEG); METHADONE NEG (NEG); OPIATES NEG (NEG); PHENCYCLIDINE NEG (NEG); RBC,URINE 0 /HPF (0-2); WBC,URINE OCC /HPF (0-4)
[2020-08-11 16:40] LABS: AMPHETAMINE/METHAMPHETAMINE NEG (NEG)
[2020-08-11] MEDS ORDERED: LOPERAMIDE 2 MG CAPSULE PO PRN (17:00)
--- NOTE | 2020-08-11 18:11 | NUR ---
Patient arrived to room 269 via wheelchair from ER at 1811. Patient A&OX4. Patient placed on library monitor & VS taken. Febrile at 101.1, but other VSS. Will continue to monitor.
[2020-08-11 18:34] VITALS: BP 144/84
[2020-08-11] MEDS: OLANZapine 5 MG TABLET PO SCH (20:53)
[2020-08-11] MEDS: traZODone 100 MG TABLET. PO SCH (20:53)
[2020-08-11 22:00] VITALS: BP 154/68
[2020-08-12 03:17] VITALS: BP 151/68
[2020-08-12 06:31] VITALS: BP 139/68
[2020-08-12 07:07] LABS: CALCIUM 8.3 mg/dL (8.5-10.1); CREATININE 1.1 mg/dL (0.6-1.0); GFR 60.5; POTASSIUM 3.5 mmol/L (3.5-5.1)
[2020-08-12 07:18] LABS: BASO % 0 % (0-3); EOS % 0 % (0-3); HEMATOCRIT 40.3 % (36.0-47.0); HEMOGLOBIN 14.2 g/dL (12.0-15.5); LYMPH # 0.8 x10^3/uL (1.0-4.8); LYMPH % 29 % (24-48); MEAN CORPUSCULAR HEMOGLOBIN 30 pg (25-35); MEAN CORPUSCULAR HGB CONC 35 g/dL (31-37); MEAN CORPUSCULAR VOLUME 85 fL (79-100); MONO # 0.4 x10^3/uL (0.0-1.1); MONO % 12 % (0-9); NEUT # 1.8 x10^3/uL (1.8-7.7); NEUT % 59 % (31-73); PLATELET COUNT 208 x10^3/uL (140-400); RED BLOOD COUNT 4.73 x10^6/uL (3.50-5.40); RED CELL DISTRIBUTION WIDTH 13.5 % (11.5-14.5)
[2020-08-12 08:56] LABS: CHOLESTEROL/HDL RATIO 5.2
--- NOTE | 2020-08-12 08:56 | PDOC ---
[facility] PROGRESS NOTE Date of Service DOS: DATE: 08/12/20 TIME: 08:49 Chief Complaint Chief Complaint A/P: Chest pain - likely costochondritis due to cough, and viral pneumonia from COVID, will trend troponins. No STEMI NSTEMI - likely type 2 demand ischemia, initial trop 0.56. CTPA negative for PE. EKG SR with with LVH, no acute changes by comparison. D/w cardiology will start therapeutic lovenox Covid-19 pneumonia - now with significant hypoxia. Will continue supportive care. O2 saturations dropped, will initiate steroids and remdesivir Diarrhea/vomiting with fever and anosmia - COVID related, will give supportive care. HTN - no home meds HLD - no meds Hx of ETOH and cocaine abuse - counseled on cessation Hx of anxiety/depression and SI - has BP disorder meds, will replace vraylar with zyprexa, trazodone FEN - Regular diet PPX - lovenox FULL CODE DIspo - inpatient for above History of Present Illness History of Present Illness Ms Mcadams is a 65 yo female w/ PMHx HTN, HLD, anxiety, depression, ETOH and cocaine abuse who presents to the ED on 08/11/2020 for complains of fever and cough that started on 08/06/2020. Reports of fever chills with associated nausea vomiting and diarrhea that began over the past day. She also notes anosmia and some loss of appetite. She notes sharp chest pain with associated coughing. She notes a Covid exposure about a week ago from a friend who stayed with her after her discharge from the hospital for Covid and she was unaware of this. In ED she is visibly uncomfortable and itching. ED staff noted she was in respiratory distress and desaturated to 88% on room air was placed on O2. EKG appears sinus tachycardia with rate of 96 bpm left axis deviation. Of S1, S2-S3 pattern, left anterior fascicular block. Similar to prior EKG. She tested +covid-19 per rapid test. She does endorse heavy cocaine and alcohol use history but notes a lot her last use was 4 days ago. WBC 5.1, Hb 14.6, platelets 217, NA 140, K4, BUN 7, CR 1, glucose 103, CK 229, albumin 3.1, NT-Pro-BNP 31, urine drug screen positive for cocaine, Troponin 0.566 Given lovenox and admitted for further care. Febrile to 101.5F overnight. Now requiring oxygen with desaturations to 86% overnight. She says she has an appetite, still with diarrhea, though. Troponin minimally elevated overnight. No chest pain. Plan: Start steroids and remdesivir for Moderately severe COVID 19 Vitals/I&O Vitals/I&O: Vital Signs Date Time Temp Pulse Resp B/P (MAP) Pulse Ox O2 Delivery O2 Flow Rate FiO2 08/12/20 06:31 101.5 83 26 139/68 (91) 98 Nasal Cannula 3.0 101.5 I & O 08/11/20 08/11/20 08/12/20 15:00 23:00 07:00 Intake Total 4 ml 240 ml Balance 4 ml 240 ml Physical Exam General: Alert, Oriented X3, Cooperative, No acute distress Heart: Regular rate (SR), Normal S1, Normal S2, Other (2/y ssytolic murmur to LLS border) Abdomen: No tenderness Extremities: No cyanosis, No edema Skin: No breakdown, No significant lesion Labs Labs: Laboratory Tests Test 08/11/20 12:13 08/11/20 12:58 08/11/20 13:06 08/11/20 13:40 Glucose (Fingerstick) 112 mg/dL (70-99) Influenza Type A Antigen Negative (NEGATIVE) Influenza Type B Antigen Negative (NEGATIVE) SARS-CoV-2 RNA (HOLLI) Positive (Negative) White Blood Count 5.1 x10^3/uL (4.0-11.0) Red Blood Count 5.02 x10^6/uL (3.50-5.40) Hemoglobin 14.6 g/dL (12.0-15.5) Hematocrit 42.3 % (36.0-47.0) Mean Corpuscular Volume 84 fL (79-100) Mean Corpuscular Hemoglobin 29 pg (25-35) Mean Corpuscular Hemoglobin Concent 35 g/dL (31-37) Red Cell Distribution Width 12.9 % (11.5-14.5) Platelet Count 217 x10^3/uL (140-400) Neutrophils (%) (Auto) 77 % (31-73) Lymphocytes (%) (Auto) 14 % (24-48) Monocytes (%) (Auto) 9 % (0-9) Eosinophils (%) (Auto) 0 % (0-3) Basophils (%) (Auto) 0 % (0-3) Neutrophils # (Auto) 3.9 x10^3/uL (1.8-7.7) Lymphocytes # (Auto) 0.7 x10^3/uL (1.0-4.8) Monocytes # (Auto) 0.5 x10^3/uL (0.0-1.1) Eosinophils # (Auto) 0.0 x10^3/uL (0.0-0.7) Basophils # (Auto) 0.0 x10^3/uL (0.0-0.2) D-Dimer (Umm) 0.90 ug/mlFEU (0.00-0.50) Sodium Level 140 mmol/L (136-145) Potassium Level 4.0 mmol/L (3.5-5.1) Chloride Level 101 mmol/L (98-107) Carbon Dioxide Level 29 mmol/L (21-32) Anion Gap 10 (6-14) Blood Urea Nitrogen 7 mg/dL (7-20) Creatinine 1.0 mg/dL (0.6-1.0) Estimated GFR (Cockcroft-Gault) 67.5 BUN/Creatinine Ratio 7 (6-20) Glucose Level 103 mg/dL (70-99) Calcium Level 8.4 mg/dL (8.5-10.1) Total Bilirubin 0.3 mg/dL (0.2-1.0) Aspartate Amino Transf (AST/SGOT) 31 U/L (15-37) Alanine Aminotransferase (ALT/SGPT) 17 U/L (14-59) Alkaline Phosphatase 46 U/L (46-116) Creatine Kinase 229 U/L (26-192) Troponin I Quantitative 0.566 ng/mL (0.000-0.055) KI-Kam-K-Type Natriuretic Peptide 31 pg/mL (0-124) Total Protein 6.5 g/dL (6.4-8.2) Albumin 3.1 g/dL (3.4-5.0) Albumin/Globulin Ratio 0.9 (1.0-1.7) Test 08/11/20 16:15 08/11/20 21:00 08/12/20 06:05 Urine Collection Type Unknown Urine Color Yellow Urine Clarity Clear Urine pH 5.5 (<5.0-8.0) Urine Specific Speed >=1.030 (1.000-1.030) Urine Protein 100 mg/dL (NEG-TRACE) Urine Glucose (UA) Negative mg/dL (NEG) Urine Ketones (Stick) Negative mg/dL (NEG) Urine Blood Negative (NEG) Urine Nitrite Negative (NEG) Urine Bilirubin Negative (NEG) Urine Urobilinogen Dipstick 0.2 mg/dL (0.2 mg/dL) Urine Leukocyte Esterase Negative (NEG) Urine RBC 0 /HPF (0-2) Urine WBC Occ /HPF (0-4) Urine Squamous Epithelial Cells Few /LPF Urine Bacteria 0 /HPF (0-FEW) Urine Mucus Slight /LPF Urine Opiates Screen Neg (NEG) Urine Methadone Screen Neg (NEG) Urine Barbiturates Neg (NEG) Urine Phencyclidine Screen Neg (NEG) Urine Amphetamine/Methamphetamine Neg (NEG) Urine Benzodiazepines Screen Neg (NEG) Urine Cocaine Screen Pos (NEG) Urine Cannabinoids Screen Neg (NEG) Urine Ethyl Alcohol Neg (NEG) Troponin I Quantitative 0.643 ng/mL (0.000-0.055) White Blood Count 3.0 x10^3/uL (4.0-11.0) Red Blood Count 4.73 x10^6/uL (3.50-5.40) Hemoglobin 14.2 g/dL (12.0-15.5) Hematocrit 40.3 % (36.0-47.0) Mean Corpuscular Volume 85 fL (79-100) Mean Corpuscular Hemoglobin 30 pg (25-35) Mean Corpuscular Hemoglobin Concent 35 g/dL (31-37) Red Cell Distribution Width 13.5 % (11.5-14.5) Platelet Count 208 x10^3/uL (140-400) Neutrophils (%) (Auto) 59 % (31-73) Lymphocytes (%) (Auto) 29 % (24-48) Monocytes (%) (Auto) 12 % (0-9) Eosinophils (%) (Auto) 0 % (0-3) Basophils (%) (Auto) 0 % (0-3) Neutrophils # (Auto) 1.8 x10^3/uL (1.8-7.7) Lymphocytes # (Auto) 0.8 x10^3/uL (1.0-4.8) Monocytes # (Auto) 0.4 x10^3/uL (0.0-1.1) Eosinophils # (Auto) 0.0 x10^3/uL (0.0-0.7) Basophils # (Auto) 0.0 x10^3/uL (0.0-0.2) Sodium Level 140 mmol/L (136-145) Potassium Level 3.5 mmol/L (3.5-5.1) Chloride Level 103 mmol/L (98-107) Carbon Dioxide Level 27 mmol/L (21-32) Anion Gap 10 (6-14) Blood Urea Nitrogen 12 mg/dL (7-20) Creatinine 1.1 mg/dL (0.6-1.0) Estimated GFR (Cockcroft-Gault) 60.5 Glucose Level 99 mg/dL (70-99) Calcium Level 8.3 mg/dL (8.5-10.1) Assessment and Plan Assessmemt and Plan Problems Medical Problems: (1) Acute respiratory failure with hypoxia Status: Acute (2) COVID-19 Status: Acute (3) NSTEMI (non-ST elevated myocardial infarction) Status: Acute Comment Review of Relevant I have reviewed the following items frank (where applicable) has been applied. Medications: Current Medications Medications (Trade) Dose Ordered Sig/Brock Route PRN Reason Start Time Stop Time Status Last Admin Dose Admin Heparin Sodium/ Dextrose 250 ml @ 0 mls/hr CONT PRN IV PER PROTOCOL 08/11/20 15:00 08/11/20 16:15 DC 08/11/20 15:47 Iohexol (Omnipaque 350 Mg/ml) 90 ml 1X ONCE IV 08/11/20 15:15 08/11/20 15:16 DC 08/11/20 15:21 Enoxaparin Sodium (Lovenox 80mg Syringe) 70 mg Q12HR SQ 08/11/20 16:30 08/12/20 11:00 08/11/20 16:46 Trazodone HCl (Desyrel) 100 mg QHS PO 08/11/20 21:00 08/11/20 20:53 Olanzapine (ZyPREXA) 5 mg BID PO 08/11/20 21:00 08/11/20 20:53 Justifications for Admission Other Justification RIFFEL,CHRISTOPHER S MD Aug 12, 2020 08:56
[2020-08-12] MEDS: ZINC SULFATE 220 MG CAPSULE. PO SCH (09:45)
[2020-08-12] MEDS: ASPIRIN ENTERIC COATED 81 MG TABLET.DR. PO SCH (09:45)
[2020-08-12] MEDS: CITALOPRAM 20 MG TABLET. PO SCH (09:45)
[2020-08-12] MEDS: OLANZapine 5 MG TABLET PO SCH ×2 (09:45→20:15)
[2020-08-12] MEDS: DEXAMETHASONE SOD PHOS 4 MG/ML VIAL IVP SCH (09:47)
[2020-08-12] MEDS ORDERED: REMDESIVIR LOAD in IV NORMAL SALINE 250ML TV IV ONE (10:00)
[2020-08-12 10:57] VITALS: BP 132/64
--- NOTE | 2020-08-12 14:10 | NUR ---
SS following for discharge planning. SS reviewed pt chart and discussed with pt RN. Pt is from home and is currently requiring oxygen at three liters nasal canula. COVID19 positive. Pt has no home oxygen. Pt on IV Remdesivir and steroids. Cardiology consulted. SS will continue to follow for discharge planning.
--- NOTE | 2020-08-12 14:31 | PDOC ---
CARLOS [facility] [employer]AT[employer] AUDITOR 08/12/20 1431: CARDIO Progress Notes Date and Time Date of Service 08/12/2020 Time of Evaluation 1220 Subjective Subjective: No Chest Pain, No shortness of breath, No Palpitations Vitals Vitals Vital Signs Date Time Temp Pulse Resp B/P (MAP) Pulse Ox O2 Delivery O2 Flow Rate FiO2 08/12/20 10:57 100.6 77 28 132/64 (86) 97 Nasal Cannula 3.0 100.6 Weight Weight [ ] Input and Output Intake and Output Intake and Output 08/12/20 07:00 Intake Total 244 ml Balance 244 ml Intake Oral 240 ml IV Total 4 ml # Voids 1 # Bowel Movements 2 Laboratory Labs Laboratory Tests Test 08/11/20 16:15 08/11/20 21:00 08/12/20 06:05 Urine Collection Type Unknown Urine Color Yellow Urine Clarity Clear Urine pH 5.5 (<5.0-8.0) Urine Specific [place] >=1.030 (1.000-1.030) Urine Protein 100 mg/dL (NEG-TRACE) Urine Glucose (UA) Negative mg/dL (NEG) Urine Ketones (Stick) Negative mg/dL (NEG) Urine Blood Negative (NEG) Urine Nitrite Negative (NEG) Urine Bilirubin Negative (NEG) Urine Urobilinogen Dipstick 0.2 mg/dL (0.2 mg/dL) Urine Leukocyte Esterase Negative (NEG) Urine RBC 0 /HPF (0-2) Urine WBC Occ /HPF (0-4) Urine Squamous Epithelial Cells Few /LPF Urine Bacteria 0 /HPF (0-FEW) Urine Mucus Slight /LPF Urine Opiates Screen Neg (NEG) Urine Methadone Screen Neg (NEG) Urine Barbiturates Neg (NEG) Urine Phencyclidine Screen Neg (NEG) Urine Amphetamine/Methamphetamine Neg (NEG) Urine Benzodiazepines Screen Neg (NEG) Urine Cocaine Screen Pos (NEG) Urine Cannabinoids Screen Neg (NEG) Urine Ethyl Alcohol Neg (NEG) Troponin I Quantitative 0.643 ng/mL (0.000-0.055) White Blood Count 3.0 x10^3/uL (4.0-11.0) Red Blood Count 4.73 x10^6/uL (3.50-5.40) Hemoglobin 14.2 g/dL (12.0-15.5) Hematocrit 40.3 % (36.0-47.0) Mean Corpuscular Volume 85 fL (79-100) Mean Corpuscular Hemoglobin 30 pg (25-35) Mean Corpuscular Hemoglobin Concent 35 g/dL (31-37) Red Cell Distribution Width 13.5 % (11.5-14.5) Platelet Count 208 x10^3/uL (140-400) Neutrophils (%) (Auto) 59 % (31-73) Lymphocytes (%) (Auto) 29 % (24-48) Monocytes (%) (Auto) 12 % (0-9) Eosinophils (%) (Auto) 0 % (0-3) Basophils (%) (Auto) 0 % (0-3) Neutrophils # (Auto) 1.8 x10^3/uL (1.8-7.7) Lymphocytes # (Auto) 0.8 x10^3/uL (1.0-4.8) Monocytes # (Auto) 0.4 x10^3/uL (0.0-1.1) Eosinophils # (Auto) 0.0 x10^3/uL (0.0-0.7) Basophils # (Auto) 0.0 x10^3/uL (0.0-0.2) Sodium Level 140 mmol/L (136-145) Potassium Level 3.5 mmol/L (3.5-5.1) Chloride Level 103 mmol/L (98-107) Carbon Dioxide Level 27 mmol/L (21-32) Anion Gap 10 (6-14) Blood Urea Nitrogen 12 mg/dL (7-20) Creatinine 1.1 mg/dL (0.6-1.0) Estimated GFR (Cockcroft-Gault) 60.5 Glucose Level 99 mg/dL (70-99) Calcium Level 8.3 mg/dL (8.5-10.1) Triglycerides Level 96 mg/dL (0-150) Cholesterol Level 136 mg/dL (0-200) LDL Cholesterol, Calculated 91 mg/dL (0-100) VLDL Cholesterol, Calculated 19 mg/dL (0-40) Non-HDL Cholesterol Calculated 110 mg/dL (0-129) HDL Cholesterol 26 mg/dL (40-60) Cholesterol/HDL Ratio 5.2 Physical Exam HEENT: Neck Supple W Full Motion Chest: Symmetric LUNGS: Other (diminished) Heart: RRR (Sr no significnat ectopies) Abdomen: Soft N/T Extremities: No Calf Tenderness Neurology: alert, oriented, follow commands Assessment Assessment 1. Covid-19 pneumonia: fever remains 2. Diarrhea/vomiting with fever and anosmia: due to viral infection 3. HTN: no home meds, controlled otherwise 4. HLP: no meds, lipids are very close to goal. diet modification 5. Hx of ETOH and cocaine abuse 6. NSTEMI: type 2 initial troponin peaked at 0.6 with associated covid-19 and cocaine abuse. CTA negative for PE. EKG SR with with LVH, no acute changes by comparison 7. Atypical CP: likely due to coughing 8. Hx of anxiety/depression and SI 9. Polysubstance abuse: marijuana and cocaine last use 4 days ago 10. Tobaccoism Recommendation 1. Lovenox for VTE prophylaxis. ASA 2. TTE as an outpt if she complies 3. Covid-19 treatment oer PCP 4. Smoking cessation and lifestyle modification including abstinence from recreational drug use. 5. Supportive care. 6. Monitor BP trend and will place on regimen per trend. Justicifation of Admission Dx: Justifications for Admission: Justification of Admission Dx: Yes LUCITA JOHNS MD 08/12/201921: CARDIO Progress Notes Assessment Assessment Patient seen and evaluated. I agree with our nurse practitioners assessment and plan. Covid-19 pneumonia: fever remains. Continue as per protocol. Diarrhea/vomiting with fever and anosmia: due to viral infection HTN: Under better control. HLP: no meds, lipids are very close to goal. diet modification Hx of ETOH and cocaine abuse NSTEMI: type 2 troponin peaked at 0.6 with associated covid-19 and cocaine abuse. CTA negative for PE. EKG SR with with LVH, no acute changes by comparison. Continue medical treatment. Outpatient echo. Hx of anxiety/depression CARLOS ALLEN REGULATORY AUDITOR Aug 12, 2020 14:31 LUCITA JOHNS MD Aug 12, 2020 19:22
[2020-08-12 15:32] VITALS: BP 134/70
[2020-08-12 19:45] VITALS: BP 149/63
[2020-08-12] MEDS: traZODone 100 MG TABLET. PO SCH (20:15)
[2020-08-12 23:05] VITALS: BP 140/73
[2020-08-13 03:20] VITALS: BP 127/66
[2020-08-13] MEDS: guaiFENesin DM 200MG/20MG 10 ML SYRUP PO PRN ×2 (04:57→21:21)
--- NOTE | 2020-08-13 05:08 | NUR ---
Patient pulled SL out. Placed new SL. 22# left forearm with one attempt. Patient tolerated well.
[2020-08-13 07:00] VITALS: BP 132/58
--- NOTE | 2020-08-13 07:18 | PDOC ---
[facility] [facility] PROGRESS NOTE Date of Service DOS: DATE: 08/13/20 TIME: 07:17 Chief Complaint Chief Complaint A/P: Chest pain - likely costochondritis due to cough, and viral pneumonia from COVID, will trend troponins. No STEMI NSTEMI - likely type 2 demand ischemia, initial trop 0.56. CTPA negative for PE. EKG SR with with LVH, no acute changes by comparison. D/w cardiology will start therapeutic lovenox Covid-19 pneumonia - now with significant hypoxia. Will continue supportive care. O2 saturations dropped, will initiate steroids and remdesivir Diarrhea/vomiting with fever and anosmia - COVID related, will give supportive care. HTN - no home meds HLD - no meds Hx of ETOH and cocaine abuse - counseled on cessation Hx of anxiety/depression and SI - has BP disorder meds, will replace vraylar with zyprexa, trazodone FEN - Regular diet PPX - lovenox FULL CODE DIspo - inpatient for above History of Present Illness History of Present Illness Ms Mcadams is a 65 yo female w/ PMHx HTN, HLD, anxiety, depression, ETOH and cocaine abuse who presents to the ED on 08/11/2020 for complains of fever and cough that started on 08/06/2020. Reports of fever chills with associated nausea vomiting and diarrhea that began over the past day. She also notes anosmia and some loss of appetite. She notes sharp chest pain with associated coughing. She notes a Covid exposure about a week ago from a friend who stayed with her after her discharge from the hospital for Covid and she was unaware of this. In ED she is visibly uncomfortable and itching. ED staff noted she was in respiratory distress and desaturated to 88% on room air was placed on O2. EKG appears sinus tachycardia with rate of 96 bpm left axis deviation. Of S1, S2-S3 pattern, left anterior fascicular block. Similar to prior EKG. She tested +covid-19 per rapid test. She does endorse heavy cocaine and alcohol use history but notes a lot her last use was 4 days ago. WBC 5.1, Hb 14.6, platelets 217, NA 140, K4, BUN 7, CR 1, glucose 103, CK 229, albumin 3.1, NT-Pro-BNP 31, urine drug screen positive for cocaine, Troponin 0.566 Given lovenox and admitted for further care. 08/12: Febrile to 101.5F overnight. Now requiring oxygen with desat to 86% overnight. Has appetite, still with diarrhea. Trop minimally elevated. No chest pain. Remdesivir day 1 T-max 100.6 F overnight. O2 requirements remain between 2 to 3 L. Still has appetite still with diarrhea. No chest pain. Plan: Cont steroids and remdesivir for Moderately severe COVID 19 Vitals/I&O Vitals/I&O: Vital Signs Date Time Temp Pulse Resp B/P (MAP) Pulse Ox O2 Delivery O2 Flow Rate FiO2 08/13/20 03:20 97.8 67 16 127/66 (86) 94 Room Air 97.8 08/12/20 23:05 3.0 I & O 08/12/20 08/12/20 08/13/20 15:00 23:00 07:00 Intake Total 0 ml 400 ml Balance 0 ml 400 ml Physical Exam General: Alert, Oriented X3, Cooperative, No acute distress Heart: Regular rate (SR), Normal S1, Normal S2, Other (2/y ssytolic murmur to LLS border) Abdomen: No tenderness Extremities: No cyanosis, No edema Skin: No breakdown, No significant lesion Assessment and Plan Assessmemt and Plan Problems Medical Problems: (1) Acute respiratory failure with hypoxia Status: Acute (2) COVID-19 Status: Acute (3) NSTEMI (non-ST elevated myocardial infarction) Status: Acute Comment Review of Relevant I have reviewed the following items frank (where applicable) has been applied. Medications: Current Medications Medications (Trade) Dose Ordered Sig/Brock Route PRN Reason Start Time Stop Time Status Last Admin Dose Admin Aspirin (Ecotrin) 81 mg [id number] PO 08/12/20 08:00 08/12/20 09:45 Citalopram Hydrobromide (CeleXA) 40 mg DAILY PO 08/12/20 09:00 08/12/20 09:45 Zinc Sulfate (Orazinc) 220 mg DAILY PO 08/12/20 09:00 08/12/20 09:45 Dexamethasone Sodium Phosphate (Decadron) 4 mg DAILY IVP 08/12/20 09:00 08/12/20 09:47 Remdesivir 200 mg/ Sodium Chloride 210 ml @ 210 mls/hr 1X ONCE IV 08/12/20 10:00 08/12/20 10:59 DC 08/12/20 09:46 Justifications for Admission Other Justification JANIS BUSH MD Aug 13, 2020 07:18
[2020-08-13] MEDS: ASPIRIN ENTERIC COATED 81 MG TABLET.DR. PO SCH (08:32)
[2020-08-13] MEDS: ZINC SULFATE 220 MG CAPSULE. PO SCH (08:32)
[2020-08-13] MEDS: ENOXAPARIN 40 MG/0.4 ML SYRINGE. SQ SCH (08:32)
[2020-08-13] MEDS: CITALOPRAM 20 MG TABLET. PO SCH (08:32)
[2020-08-13] MEDS: OLANZapine 5 MG TABLET PO SCH ×2 (08:32→21:00)
[2020-08-13] MEDS: DEXAMETHASONE SOD PHOS 4 MG/ML VIAL IVP SCH (08:32)
[2020-08-13 08:48] LABS: ALBUMIN 2.7 g/dL (3.4-5.0); ALBUMIN/GLOBULIN RATIO 0.7 (1.0-1.7); CALCIUM 8.3 mg/dL (8.5-10.1); CREATININE 0.9 mg/dL (0.6-1.0); GFR 76.3; POTASSIUM 3.9 mmol/L (3.5-5.1); TOTAL BILIRUBIN 0.3 mg/dL (0.2-1.0); TOTAL PROTEIN 6.5 g/dL (6.4-8.2)
[2020-08-13] MEDS: REMDESIVIR 100mg in NORMAL SALINE 250ML X 4 DAYS IV SCH (10:52)
[2020-08-13 11:00] VITALS: BP 120/72
--- NOTE | 2020-08-13 14:54 | NUR ---
SS following up with discharge planning. SS reviewed pt chart and discussed with pt RN. Pt is currently requiring oxygen at three liters nasal canula. COVID19 positive. Pt has no home oxygen. Pt on IV Remdesivir and steroids. Pt has three more days of Remdesivir. SS will continue to follow for discharge planning.
[2020-08-13 15:00] VITALS: BP 156/69
[2020-08-13 18:51] VITALS: BP 169/79
[2020-08-13] MEDS: traZODone 100 MG TABLET. PO SCH (21:00)
[2020-08-13 22:00] VITALS: BP 161/74
[2020-08-14] VITALS (7 sets, daily range): BP systolic 138–199; BP diastolic 69–89
[2020-08-14] MEDS: guaiFENesin DM 200MG/20MG 10 ML SYRUP PO PRN ×2 (05:51→20:54)
[2020-08-14 08:12] LABS: HEMATOCRIT 41.1 % (36.0-47.0); RED BLOOD COUNT 4.82 x10^6/uL (3.50-5.40); RED CELL DISTRIBUTION WIDTH 13.4 % (11.5-14.5); WHITE BLOOD COUNT 5.1 x10^3/uL (4.0-11.0)
[2020-08-14 08:25] LABS: ALBUMIN 2.7 g/dL (3.4-5.0); ALBUMIN/GLOBULIN RATIO 0.7 (1.0-1.7); CALCIUM 8.3 mg/dL (8.5-10.1); CREATININE 0.9 mg/dL (0.6-1.0); GFR 76.3; POTASSIUM 3.8 mmol/L (3.5-5.1); TOTAL BILIRUBIN 0.3 mg/dL (0.2-1.0); TOTAL PROTEIN 6.5 g/dL (6.4-8.2)
[2020-08-14] MEDS: DEXAMETHASONE SOD PHOS 4 MG/ML VIAL IVP SCH (08:30)
[2020-08-14] MEDS: CITALOPRAM 20 MG TABLET. PO SCH (08:31)
[2020-08-14] MEDS: OLANZapine 5 MG TABLET PO SCH ×2 (08:31→20:54)
[2020-08-14] MEDS: ASPIRIN ENTERIC COATED 81 MG TABLET.DR. PO SCH (08:31)
[2020-08-14] MEDS: ENOXAPARIN 40 MG/0.4 ML SYRINGE. SQ SCH (08:31)
[2020-08-14] MEDS: ZINC SULFATE 220 MG CAPSULE. PO SCH (08:31)
--- NOTE | 2020-08-14 08:34 | PDOC ---
PROGRESS NOTES Date of Service: DATE: 08/14/20 TIME: 08:34 Chief Complaint Chief Complaint IMPRESSION Chest pain - due to cough, and viral pneumonia from COVID, will trend troponins. NSTEMI: suspect type 2 initial troponin at 0.56 with associated covid-19 and cocaine abuse. CTA negative for PE. EKG SR with with LVH NSTEMI - likely type 2 demand ischemia, initial trop 0.56. CTPA negative for PE. EKG SR with with LVH, no acute changes by comparison. D/w cardiology will start therapeutic lovenox Covid-19 pneumonia - now with significant hypoxia. Will continue supportive care. O2 saturations dropped, will initiate steroids and remdesivir Diarrhea/vomiting with fever and anosmia - COVID related, CONTINUEV supportive care. HTN - no home meds, LABILE HLD - no meds Hx of ETOH and cocaine abuse - counseled on cessation COCAINE POS UDS Hx of anxiety/depression and SI - has BP disorder meds, will replace vraylar with zyprexa, trazodone PLAN FEN - Regular diet PPX - lovenox FULL CODE DIspo - inpatient for above Cont steroids and remdesivir for Moderately severe COVID 19 CVC BED D/W RN 08/14 ON 3 LITERS NC LAST NIGHT Cont steroids and remdesivir for Moderately severe COVID 19 CVC BED, INC ACTIVITY START LISINOPRIL 2.5 MG PO BID NSTEMI: suspect type 2 initial troponin at 0.56 with associated covid-19 and cocaine abuse. CTA negative for PE. EKG SR with with LVH LIPITOR 40 MG PO HS History of Present Illness History of Present Illness Ms Mcadams is a 65 yo female w/ PMHx HTN, HLD, anxiety, depression, ETOH and cocaine abuse who presents to the ED on 08/11/2020 for complains of fever and cough that started on 08/06/2020. Reports of fever chills with associated nausea vomiting and diarrhea that began over the past day. She also notes anosmia and some loss of appetite. She notes sharp chest pain with associated coughing. She notes a Covid exposure about a week ago from a friend who stayed with her after her discharge from the hospital for Covid and she was unaware of this. In ED she is visibly uncomfortable and itching. ED staff noted she was in respiratory distress and desaturated to 88% on room air was placed on O2. EKG appears sinus tachycardia with rate of 96 bpm left axis deviation. Of S1, S2-S3 pattern, left anterior fascicular block. Similar to prior EKG. She tested +covid-19 per rapid test. She does endorse heavy cocaine and alcohol use history but notes a lot her last use was 4 days ago. WBC 5.1, Hb 14.6, platelets 217, NA 140, K4, BUN 7, CR 1, glucose 103, CK 229, albumin 3.1, NT-Pro-BNP 31, urine drug screen positive for cocaine, Troponin 0.566 Given lovenox and admitted for further care. 08/12: Febrile to 101.5F overnight. Now requiring oxygen with desat to 86% overnight. Has appetite, still with diarrhea. Trop minimally elevated. No chest pain. Remdesivir day 1 T-max 100.6 F overnight. O2 requirements remain between 2 to 3 L. Still has appetite still with diarrhea. No chest pain. Plan: Cont steroids and remdesivir for Moderately severe COVID 19 Vitals Vitals Vital Signs Date Time Temp Pulse Resp B/P (MAP) Pulse Ox O2 Delivery O2 Flow Rate FiO2 08/14/20 07:00 97.9 67 22 191/87 (121) 94 Room Air 97.9 08/13/20 20:00 3.0 Physical Exam General: Alert, Oriented X3, Cooperative, No acute distress Heart: Regular rate (SR), Normal S1, Normal S2, Other (2/y ssytolic murmur to LLS border) Lungs: Crackles Abdomen: Soft, No tenderness Extremities: No cyanosis, No edema Skin: No breakdown, No significant lesion Labs LABS PATIENT: AILEEN PADILLA RACCOUNT: [id number] : 1955 LOCATION: ER AGE: 65 SEX: F EXAM STATUS: REG ER ORD. PHYSICIAN: FRANK KELLEY MD REASON: chest pain/hemoptysis PROCEDURE: CT ANGIOGRAPHY CHEST EXAM: CT chest with contrast - pulmonary embolus protocol CLINICAL HISTORY: chest pain/hemoptysis COMPARISON: None. TECHNIQUE: CT of the chest following the administration of intravenous contrast during the pulmonary arterial phase. Axial, coronal and sagittal reformatted images were generated including MIP images. ---PQRS compliance statement - One or more of the following individualized dose reduction techniques were utilized for this study: 1. Automated exposure control 2. Adjustment of the mA and/or kV according to patient size 3. Use of iterative reconstruction technique--- FINDINGS: CHEST: Diagnostic quality: Adequate contrast bolus although motion artifact limits eval uation. Pulmonary emboli: No pulmonary emboli to the level of the proximal subsegmental branches. More peripheral vessels are not well assessed. Right heart strain: None Pulmonary arteries: Normal in caliber. Heart is not enlarged. Apparent thickening of the left ventricular myocardium, left ventricular hypertrophy is suspected and can be correlated with echocardiogram. No pericardial effusion. No pleural effusion or pneumothorax. No axillary lymphadenopathy. Mediastinal and hilar lymphadenopathy. For example a agency sales representative left hilar lymph node measures 1.6 x 1 cm. AP window lymph node measures 1.5 x 1.2 cm. Right hilar lymph node measures 1.3 x 1 cm. Precarinal lymph node measures 1.6 x 1.1 cm. Bilateral emphysematous changes are seen. Groundglass and patchy parenchymal opacities are seen prominent in the lower lobes, lingula and middle lobe. No definite suspicious lung nodule or mass is seen. Visualized Upper abdomen: Unremarkable Bones: No aggressive osseous lesion is seen. IMPRESSION: 1. No evidence for acute pulmonary embolus to the level of the proximal subsegmental branches. More peripheral vessels are not well assessed. 2. Apparent thickening of the left ventricular myocardium, left ventricular hypertrophy is suspected and can be correlated with echocardiogram. 3. Groundglass and patchy parenchymal opacities, predominantly in the lower lobes, lingula and middle lobe, suspicious for multifocal consolidative process such as pneumonia. Imaging follow-up to resolution is recommended to exclude underlying mass. 4. Mediastinal and hilar lymphadenopathy is favored to be reactive given the parenchymal opacities however recommend close attention on follow-up. Electronically signed by: Yoav Tang MD (08/11/2020 3:36 PM) [facility] DI[facility]ATED and SIGNED BY: YOAV TANG MD DATE: 08/11/20 [id number] 0 Laboratory Tests Test 08/14/20 07:50 White Blood Count 5.1 x10^3/uL (4.0-11.0) Red Blood Count 4.82 x10^6/uL (3.50-5.40) Hemoglobin 14.0 g/dL (12.0-15.5) Hematocrit 41.1 % (36.0-47.0) Mean Corpuscular Volume 85 fL (79-100) Mean Corpuscular Hemoglobin 29 pg (25-35) Mean Corpuscular Hemoglobin Concent 34 g/dL (31-37) Red Cell Distribution Width 13.4 % (11.5-14.5) Platelet Count 361 x10^3/uL (140-400) Sodium Level 145 mmol/L (136-145) Potassium Level 3.8 mmol/L (3.5-5.1) Chloride Level 108 mmol/L (98-107) Carbon Dioxide Level 32 mmol/L (21-32) Anion Gap 5 (6-14) Blood Urea Nitrogen 16 mg/dL (7-20) Creatinine 0.9 mg/dL (0.6-1.0) Estimated GFR (Cockcroft-Gault) 76.3 BUN/Creatinine Ratio 18 (6-20) Glucose Level 86 mg/dL (70-99) Calcium Level 8.3 mg/dL (8.5-10.1) Total Bilirubin 0.3 mg/dL (0.2-1.0) Aspartate Amino Transf (AST/SGOT) 28 U/L (15-37) Alanine Aminotransferase (ALT/SGPT) 20 U/L (14-59) Alkaline Phosphatase 43 U/L (46-116) Total Protein 6.5 g/dL (6.4-8.2) Albumin 2.7 g/dL (3.4-5.0) Albumin/Globulin Ratio 0.7 (1.0-1.7) Assessment and Plan Assessmemt and Plan Problems Medical Problems: (1) Acute respiratory failure with hypoxia Status: Acute (2) COVID-19 Status: Acute (3) NSTEMI (non-ST elevated myocardial infarction) Status: Acute Comment Review of Relevant I have reviewed the following items frank (where applicable) has been applied. Labs Laboratory Tests Test 08/13/20 08:20 08/14/20 07:50 Sodium Level 142 mmol/L (136-145) 145 mmol/L (136-145) Potassium Level 3.9 mmol/L (3.5-5.1) 3.8 mmol/L (3.5-5.1) Chloride Level 104 mmol/L (98-107) 108 mmol/L (98-107) Carbon Dioxide Level 31 mmol/L (21-32) 32 mmol/L (21-32) Anion Gap 7 (6-14) 5 (6-14) Blood Urea Nitrogen 17 mg/dL (7-20) 16 mg/dL (7-20) Creatinine 0.9 mg/dL (0.6-1.0) 0.9 mg/dL (0.6-1.0) Estimated GFR (Cockcroft-Gault) 76.3 76.3 BUN/Creatinine Ratio 19 (6-20) 18 (6-20) Glucose Level 97 mg/dL (70-99) 86 mg/dL (70-99) Calcium Level 8.3 mg/dL (8.5-10.1) 8.3 mg/dL (8.5-10.1) Total Bilirubin 0.3 mg/dL (0.2-1.0) 0.3 mg/dL (0.2-1.0) Aspartate Amino Transf (AST/SGOT) 29 U/L (15-37) 28 U/L (15-37) Alanine Aminotransferase (ALT/SGPT) 21 U/L (14-59) 20 U/L (14-59) Alkaline Phosphatase 43 U/L (46-116) 43 U/L (46-116) Total Protein 6.5 g/dL (6.4-8.2) 6.5 g/dL (6.4-8.2) Albumin 2.7 g/dL (3.4-5.0) 2.7 g/dL (3.4-5.0) Albumin/Globulin Ratio 0.7 (1.0-1.7) 0.7 (1.0-1.7) White Blood Count 5.1 x10^3/uL (4.0-11.0) Red Blood Count 4.82 x10^6/uL (3.50-5.40) Hemoglobin 14.0 g/dL (12.0-15.5) Hematocrit 41.1 % (36.0-47.0) Mean Corpuscular Volume 85 fL (79-100) Mean Corpuscular Hemoglobin 29 pg (25-35) Mean Corpuscular Hemoglobin Concent 34 g/dL (31-37) Red Cell Distribution Width 13.4 % (11.5-14.5) Platelet Count 361 x10^3/uL (140-400) Laboratory Tests Test 08/14/20 07:50 White Blood Count 5.1 x10^3/uL (4.0-11.0) Red Blood Count 4.82 x10^6/uL (3.50-5.40) Hemoglobin 14.0 g/dL (12.0-15.5) Hematocrit 41.1 % (36.0-47.0) Mean Corpuscular Volume 85 fL (79-100) Mean Corpuscular Hemoglobin 29 pg (25-35) Mean Corpuscular Hemoglobin Concent 34 g/dL (31-37) Red Cell Distribution Width 13.4 % (11.5-14.5) Platelet Count 361 x10^3/uL (140-400) Sodium Level 145 mmol/L (136-145) Potassium Level 3.8 mmol/L (3.5-5.1) Chloride Level 108 mmol/L (98-107) Carbon Dioxide Level 32 mmol/L (21-32) Anion Gap 5 (6-14) Blood Urea Nitrogen 16 mg/dL (7-20) Creatinine 0.9 mg/dL (0.6-1.0) Estimated GFR (Cockcroft-Gault) 76.3 BUN/Creatinine Ratio 18 (6-20) Glucose Level 86 mg/dL (70-99) Calcium Level 8.3 mg/dL (8.5-10.1) Total Bilirubin 0.3 mg/dL (0.2-1.0) Aspartate Amino Transf (AST/SGOT) 28 U/L (15-37) Alanine Aminotransferase (ALT/SGPT) 20 U/L (14-59) Alkaline Phosphatase 43 U/L (46-116) Total Protein 6.5 g/dL (6.4-8.2) Albumin 2.7 g/dL (3.4-5.0) Albumin/Globulin Ratio 0.7 (1.0-1.7) Medications Current Medications Heparin Sodium/ Dextrose 250 ml @ 0 mls/hr CONT PRN IV PER PROTOCOL Last administered on 08/11/20at 15:47; Start 08/11/20 at 15:00; Stop 08/11/20 at 16 :15; Status DC Heparin Sodium (Porcine) (Heparin Sodium) 1,700 unit PRN Q6HRS PRN IV FOR UFH LEVEL LESS THAN 0.2; Start 08/11/20 at 15:00; Stop 08/11/20 at 16:15; Status DC Iohexol (Omnipaque 350 Mg/ml) 90 ml 1X ONCE IV Last administered on 08/11/20at 15:21; Start 08/11/20 at 15:15; Stop 08/11/20 at 15:16; Status DC Info (CONTRAST GIVEN -- Rx MONITORING) 1 each PRN DAILY PRN MC SEE COMMENTS; Start 08/11/20 at 15:15; Stop 08/13/20 at 15:14; Status DC Enoxaparin Sodium (Lovenox Per Pharmacy Treatment Dosing) 1 each PRN DAILY PRN MC SEE COMMENTS; Start 08/11/20 at 16:15; Status Cancel Enoxaparin Sodium (Lovenox 80mg Syringe) 70 mg Q12HR SQ Last administered on 08/12/20at 09:45; Start 08/11/20 at 16:30; Stop 08/12/20 at 11:00; Status DC Ondansetron HCl (Zofran) 4 mg PRN Q8HRS PRN IV NAUSEA/VOMITING; Start 08/11/20 at 16:30; Stop 08/12/20 at 16:29; Status DC Morphine Sulfate (Morphine Sulfate) 4 mg PRN Q2HR PRN IV PAIN; Start 08/11/20 at 16:30; Stop 08/12/20 at 16:29; Status DC Aspirin (Ecotrin) 81 mg [id number] PO Last administered on 08/14/20at 08:31; Start 08/12/20 at 08:00 Trazodone HCl (Desyrel) 100 mg QHS PO Last administered on 08/13/20at 21:00; Start 08/11/20 at 21:00 Citalopram Hydrobromide (CeleXA) 40 mg DAILY PO Last administered on 08/14/20at 08:31; Start 08/12/20 at 09:00 Olanzapine (ZyPREXA) 5 mg BID PO Last administered on 08/14/20 08:31; Start 08/11/20 at 21:00 Zinc Sulfate (Orazinc) 220 mg DAILY PO Last administered on 08/14/20 08:31; Start 08/12/20 at 09:00 Guaifenesin (Robitussin Dm) 10 ml PRN Q6HRS PRN PO COUGH Last administered on 08/14/20at 05:51; Start 08/11/20 at 17:00 Loperamide HCl (Imodium) 2 mg PRN Q15MIN PRN PO DIARRHEA; Start 08/11/20 at 17:00 Enoxaparin Sodium (Lovenox 40mg Syringe) 40 mg Q24H SQ Last administered on 08/14/20 08:31; Start 08/13/20 at 09:00 Dexamethasone Sodium Phosphate (Decadron) 4 mg DAILY IVP Last administered on 08/14/20 08:30; Start 08/12/20 at 09:00 Remdesivir 200 mg/ Sodium Chloride 210 ml @ 210 mls/hr 1X ONCE IV Last administered on 08/12/20at 09:46; Start 08/12/20 at 10:00; Stop 08/12/20 at 10:59; Status DC Remdesivir 100 mg/ Sodium Chloride 230 ml @ 460 mls/hr Q24H IV Last administered on 08/13/20at 10:52; Start 08/13/20 at 10:00; Stop 08/16/20 at 10:29 Active Scripts Active Cyclobenzaprine Hcl 10 Mg Tablet 1 Tab PO TID Diclofenac Potassium 50 Mg Tablet 1 Tab PO BID Medrol (Methylprednisolone) 4 Mg Tab.ds.pk 1 Pkg PO UD Reported Vraylar (Cariprazine Hydrochloride) 3 Mg Capsule 3 Mg PO Celexa (Citalopram Hydrobromide) 40 Mg Tablet 1 Tab PO DAILY Trazodone Hcl 100 Mg Tablet 1 Tab PO QHS Vitals/I & O Vital Sign - Last 24 Hours 08/13/20 08/13/20 08/13/20 08/13/20 11:00 15:00 18:51 20:00 Temp 98.2 97.9 96.2 98.2 97.9 96.2 Pulse 65 66 76 Resp 18 18 B/P (MAP) 120/72 (88) 156/69 (98) 169/79 (109) Pulse Ox 94 94 94 O2 Delivery Room Air Room Air Room Air Nasal Cannula O2 Flow Rate 3.0 08/13/20 08/14/20 08/14/20 22:00 03:00 07:00 Temp 98.4 98.8 97.9 98.4 98.8 97.9 Pulse 62 72 67 Resp 22 26 22 B/P (MAP) 161/74 (103) 199/89 (125) 191/87 (121) Pulse Ox 93 93 94 O2 Delivery Room Air Room Air Room Air Intake and Output 08/13/20 08/13/20 08/14/20 15:00 23:00 07:00 Intake Total 300 ml Balance 300 ml Justicifation of Admission Dx: Justifications for Admission: Justification of Admission Dx: Yes MARIANNE MADRIGAL MD Aug 14, 2020 08:34
[2020-08-14] MEDS: REMDESIVIR 100mg in NORMAL SALINE 250ML X 4 DAYS IV SCH (11:35)
[2020-08-14] MEDS: LISINOPRIL 5 MG TABLET. PO SCH ×2 (13:10→20:54)
--- NOTE | 2020-08-14 13:33 | NUR ---
SS following up with discharge planning. SS reviewed pt chart and discussed with pt RN. Pt is currently on room air. COVID19 positive. Pt on IV Remdesivir. Pt has two more Remdesivir doses. Pt on steroids. Discharge plan is currently to home when medically ready. SS will continue to follow for discharge planning.
[2020-08-14] MEDS: traZODone 100 MG TABLET. PO SCH ×2 (20:54→21:00)
[2020-08-14] MEDS: ATORVASTATIN CALCIUM 40 MG TABLET. PO SCH (20:54)
--- NOTE | 2020-08-14 21:46 | NUR ---
HS trazadone held due to pt fatigue. Pt falls asleep easily during our conversation during assessment and med pass interactions. Medication will be given if pt is more alert later and wants it. Pt is A&O x4.
[2020-08-15 03:40] VITALS: BP 176/56
[2020-08-15] MEDS: guaiFENesin DM 200MG/20MG 10 ML SYRUP PO PRN ×3 (04:10→22:02)
[2020-08-15 07:00] VITALS: BP 201/85
[2020-08-15] MEDS: DEXAMETHASONE SOD PHOS 4 MG/ML VIAL IVP SCH (08:48)
[2020-08-15] MEDS: ASPIRIN ENTERIC COATED 81 MG TABLET.DR. PO SCH (08:48)
[2020-08-15] MEDS: OLANZapine 5 MG TABLET PO SCH ×2 (08:48→22:01)
[2020-08-15] MEDS: ENOXAPARIN 40 MG/0.4 ML SYRINGE. SQ SCH (08:48)
[2020-08-15] MEDS: ZINC SULFATE 220 MG CAPSULE. PO SCH (08:49)
[2020-08-15] MEDS: CITALOPRAM 20 MG TABLET. PO SCH (08:49)
[2020-08-15] MEDS: LISINOPRIL 10 MG TABLET PO SCH ×2 (08:49→22:01)
[2020-08-15 08:52] LABS: BASO % 1 % (0-3); EOS % 0 % (0-3); HEMATOCRIT 41.1 % (36.0-47.0); HEMOGLOBIN 13.8 g/dL (12.0-15.5); LYMPH # 1.5 x10^3/uL (1.0-4.8); LYMPH % 21 % (24-48); MEAN CORPUSCULAR HEMOGLOBIN 29 pg (25-35); MEAN CORPUSCULAR HGB CONC 34 g/dL (31-37); MEAN CORPUSCULAR VOLUME 86 fL (79-100); MONO # 0.7 x10^3/uL (0.0-1.1); MONO % 10 % (0-9); NEUT # 5.1 x10^3/uL (1.8-7.7); NEUT % 69 % (31-73); PLATELET COUNT 437 x10^3/uL (140-400); RED BLOOD COUNT 4.76 x10^6/uL (3.50-5.40); RED CELL DISTRIBUTION WIDTH 13.5 % (11.5-14.5); WHITE BLOOD COUNT 7.4 x10^3/uL (4.0-11.0)
[2020-08-15 09:03] LABS: ALBUMIN 2.5 g/dL (3.4-5.0); ALBUMIN/GLOBULIN RATIO 0.7 (1.0-1.7); CALCIUM 8.2 mg/dL (8.5-10.1); CREATININE 0.8 mg/dL (0.6-1.0); GFR 87.4; POTASSIUM 3.8 mmol/L (3.5-5.1); TOTAL BILIRUBIN 0.3 mg/dL (0.2-1.0); TOTAL PROTEIN 6.1 g/dL (6.4-8.2)
--- NOTE | 2020-08-15 10:12 | PDOC ---
PROGRESS NOTES Date of Service: DATE: 08/15/20 TIME: 10:12 Chief Complaint Chief Complaint IMPRESSION Chest pain - due to cough, and viral pneumonia from COVID, will trend troponins. NSTEMI: suspect type 2 initial troponin at 0.56 with associated covid-19 and cocaine abuse. CTA negative for PE. EKG SR with with LVH NSTEMI - likely type 2 demand ischemia, initial trop 0.56. CTPA negative for PE. EKG SR with with LVH, no acute changes by comparison. D/w cardiology will start therapeutic lovenox Covid-19 pneumonia - now with significant hypoxia. Will continue supportive care. O2 saturations dropped, will initiate steroids and remdesivir Diarrhea/vomiting with fever and anosmia - COVID related, CONTINUEV supportive care. HTN - no home meds, LABILE , uncontrolled HLD - no meds Hx of ETOH and cocaine abuse - counseled on cessation COCAINE POS UDS Hx of anxiety/depression and SI - has BP disorder meds, will replace vraylar w marcello zyprexa, trazodone PLAN FEN - Regular diet PPX - lovenox FULL CODE DIspo - inpatient for above Cont steroids and remdesivir for Moderately severe COVID 19 CVC BED D/W RN 08-15 ON room air Cont steroids and remdesivir for Moderately severe COVID 19 CVC BED, INC ACTIVITY START LISINOPRIL 5 MG PO BID NSTEMI: suspect type 2 initial troponin at 0.56 with associated covid-19 and cocaine abuse. CTA negative for PE. EKG SR with with LVH LIPITOR 40 MG PO HS d/w rn D/W RN 08/14 ON 3 LITERS NC LAST NIGHT Cont steroids and remdesivir for Moderately severe COVID 19 CVC BED, INC ACTIVITY START LISINOPRIL 2.5 MG PO BID NSTEMI: suspect type 2 initial troponin at 0.56 with associated covid-19 and cocaine abuse. CTA negative for PE. EKG SR with with LVH LIPITOR 40 MG PO HS History of Present Illness History of Present Illness Ms Mcadams is a 65 yo female w/ PMHx HTN, HLD, anxiety, depression, ETOH and cocaine abuse who presents to the ED on 08/11/2020 for complains of fever and cough that started on 08/06/2020. Reports of fever chills with associated nausea vomiting and diarrhea that began over the past day. She also notes anosmia and some loss of appetite. She notes sharp chest pain with associated coughing. She notes a Covid exposure about a week ago from a friend who stayed with her after her discharge from the hospital for Covid and she was unaware of this. In ED she is visibly uncomfortable and itching. ED staff noted she was in respiratory distress and desaturated to 88% on room air was placed on O2. EKG appears sinus tachycardia with rate of 96 bpm left axis deviation. Of S1, S 2-S3 pattern, left anterior fascicular block. Similar to prior EKG. She tested +covid-19 per rapid test. She does endorse heavy cocaine and alcohol use history but notes a lot her last use was 4 days ago. WBC 5.1, Hb 14.6, platelets 217, NA 140, K4, BUN 7, CR 1, glucose 103, CK 229, albumin 3.1, NT-Pro-BNP 31, urine drug screen positive for cocaine, Troponin 0.566 Given lovenox and admitted for further care. 08/12: Febrile to 101.5F overnight. Now requiring oxygen with desat to 86% overnight. Has appetite, still with diarrhea. Trop minimally elevated. No chest pain. Remdesivir day 1 T-max 100.6 F overnight. O2 requirements remain between 2 to 3 L. Still has appetite still with diarrhea. No chest pain. Plan: Cont steroids and remdesivir for Moderately severe COVID 19 Vitals Vitals Vital Signs Date Time Temp Pulse Resp B/P (MAP) Pulse Ox O2 Delivery O2 Flow Rate FiO2 08/15/20 08:49 56 201/85 08/15/20 07:00 98.0 22 94 98.0 08/15/20 03:40 Room Air Physical Exam General: Alert, Oriented X3, Cooperative, No acute distress Heart: Regular rate (SR), Normal S1, Normal S2, Other (2/y ssytolic murmur to LLS border) Lungs: Crackles Abdomen: Soft, No tenderness Extremities: No cyanosis, No edema Skin: No breakdown, No significant lesion Labs LABS Laboratory Tests Test 08/15/20 08:25 White Blood Count 7.4 x10^3/uL (4.0-11.0) Red Blood Count 4.76 x10^6/uL (3.50-5.40) Hemoglobin 13.8 g/dL (12.0-15.5) Hematocrit 41.1 % (36.0-47.0) Mean Corpuscular Volume 86 fL (79-100) Mean Corpuscular Hemoglobin 29 pg (25-35) Mean Corpuscular Hemoglobin Concent 34 g/dL (31-37) Red Cell Distribution Width 13.5 % (11.5-14.5) Platelet Count 437 x10^3/uL (140-400) Neutrophils (%) (Auto) 69 % (31-73) Lymphocytes (%) (Auto) 21 % (24-48) Monocytes (%) (Auto) 10 % (0-9) Eosinophils (%) (Auto) 0 % (0-3) Basophils (%) (Auto) 1 % (0-3) Neutrophils # (Auto) 5.1 x10^3/uL (1.8-7.7) Lymphocytes # (Auto) 1.5 x10^3/uL (1.0-4.8) Monocytes # (Auto) 0.7 x10^3/uL (0.0-1.1) Eosinophils # (Auto) 0.0 x10^3/uL (0.0-0.7) Basophils # (Auto) 0.0 x10^3/uL (0.0-0.2) Sodium Level 150 mmol/L (136-145) Potassium Level 3.8 mmol/L (3.5-5.1) Chloride Level 111 mmol/L (98-107) Carbon Dioxide Level 30 mmol/L (21-32) Anion Gap 9 (6-14) Blood Urea Nitrogen 20 mg/dL (7-20) Creatinine 0.8 mg/dL (0.6-1.0) Estimated GFR (Cockcroft-Gault) 87.4 BUN/Creatinine Ratio 25 (6-20) Glucose Level 85 mg/dL (70-99) Calcium Level 8.2 mg/dL (8.5-10.1) Total Bilirubin 0.3 mg/dL (0.2-1.0) Aspartate Amino Transf (AST/SGOT) 32 U/L (15-37) Alanine Aminotransferase (ALT/SGPT) 25 U/L (14-59) Alkaline Phosphatase 48 U/L (46-116) Total Protein 6.1 g/dL (6.4-8.2) Albumin 2.5 g/dL (3.4-5.0) Albumin/Globulin Ratio 0.7 (1.0-1.7) Assessment and Plan Assessmemt and Plan Problems Medical Problems: (1) Acute respiratory failure with hypoxia Status: Acute (2) COVID-19 Status: Acute (3) NSTEMI (non-ST elevated myocardial infarction) Status: Acute Comment Review of Relevant I have reviewed the following items frank (where applicable) has been applied. Labs Laboratory Tests Test 08/14/20 07:50 08/15/20 08:25 White Blood Count 5.1 x10^3/uL (4.0-11.0) 7.4 x10^3/uL (4.0-11.0) Red Blood Count 4.82 x10^6/uL (3.50-5.40) 4.76 x10^6/uL (3.50-5.40) Hemoglobin 14.0 g/dL (12.0-15.5) 13.8 g/dL (12.0-15.5) Hematocrit 41.1 % (36.0-47.0) 41.1 % (36.0-47.0) Mean Corpuscular Volume 85 fL (79-100) 86 fL (79-100) Mean Corpuscular Hemoglobin 29 pg (25-35) 29 pg (25-35) Mean Corpuscular Hemoglobin Concent 34 g/dL (31-37) 34 g/dL (31-37) Red Cell Distribution Width 13.4 % (11.5-14.5) 13.5 % (11.5-14.5) Platelet Count 361 x10^3/uL (140-400) 437 x10^3/uL (140-400) Sodium Level 145 mmol/L (136-145) 150 mmol/L (136-145) Potassium Level 3.8 mmol/L (3.5-5.1) 3.8 mmol/L (3.5-5.1) Chloride Level 108 mmol/L (98-107) 111 mmol/L (98-107) Carbon Dioxide Level 32 mmol/L (21-32) 30 mmol/L (21-32) Anion Gap 5 (6-14) 9 (6-14) Blood Urea Nitrogen 16 mg/dL (7-20) 20 mg/dL (7-20) Creatinine 0.9 mg/dL (0.6-1.0) 0.8 mg/dL (0.6-1.0) Estimated GFR (Cockcroft-Gault) 76.3 87.4 BUN/Creatinine Ratio 18 (6-20) 25 (6-20) Glucose Level 86 mg/dL (70-99) 85 mg/dL (70-99) Calcium Level 8.3 mg/dL (8.5-10.1) 8.2 mg/dL (8.5-10.1) Ferritin 502 ng/mL (8-252) Total Bilirubin 0.3 mg/dL (0.2-1.0) 0.3 mg/dL (0.2-1.0) Aspartate Amino Transf (AST/SGOT) 28 U/L (15-37) 32 U/L (15-37) Alanine Aminotransferase (ALT/SGPT) 20 U/L (14-59) 25 U/L (14-59) Alkaline Phosphatase 43 U/L (46-116) 48 U/L (46-116) Total Protein 6.5 g/dL (6.4-8.2) 6.1 g/dL (6.4-8.2) Albumin 2.7 g/dL (3.4-5.0) 2.5 g/dL (3.4-5.0) Albumin/Globulin Ratio 0.7 (1.0-1.7) 0.7 (1.0-1.7) Neutrophils (%) (Auto) 69 % (31-73) Lymphocytes (%) (Auto) 21 % (24-48) Monocytes (%) (Auto) 10 % (0-9) Eosinophils (%) (Auto) 0 % (0-3) Basophils (%) (Auto) 1 % (0-3) Neutrophils # (Auto) 5.1 x10^3/uL (1.8-7.7) Lymphocytes # (Auto) 1.5 x10^3/uL (1.0-4.8) Monocytes # (Auto) 0.7 x10^3/uL (0.0-1.1) Eosinophils # (Auto) 0.0 x10^3/uL (0.0-0.7) Basophils # (Auto) 0.0 x10^3/uL (0.0-0.2) Laboratory Tests Test 08/15/20 08:25 White Blood Count 7.4 x10^3/uL (4.0-11.0) Red Blood Count 4.76 x10^6/uL (3.50-5.40) Hemoglobin 13.8 g/dL (12.0-15.5) Hematocrit 41.1 % (36.0-47.0) Mean Corpuscular Volume 86 fL (79-100) Mean Corpuscular Hemoglobin 29 pg (25-35) Mean Corpuscular Hemoglobin Concent 34 g/dL (31-37) Red Cell Distribution Width 13.5 % (11.5-14.5) Platelet Count 437 x10^3/uL (140-400) Neutrophils (%) (Auto) 69 % (31-73) Lymphocytes (%) (Auto) 21 % (24-48) Monocytes (%) (Auto) 10 % (0-9) Eosinophils (%) (Auto) 0 % (0-3) Basophils (%) (Auto) 1 % (0-3) Neutrophils # (Auto) 5.1 x10^3/uL (1.8-7.7) Lymphocytes # (Auto) 1.5 x10^3/uL (1.0-4.8) Monocytes # (Auto) 0.7 x10^3/uL (0.0-1.1) Eosinophils # (Auto) 0.0 x10^3/uL (0.0-0.7) Basophils # (Auto) 0.0 x10^3/uL (0.0-0.2) Sodium Level 150 mmol/L (136-145) Potassium Level 3.8 mmol/L (3.5-5.1) Chloride Level 111 mmol/L (98-107) Carbon Dioxide Level 30 mmol/L (21-32) Anion Gap 9 (6-14) Blood Urea Nitrogen 20 mg/dL (7-20) Creatinine 0.8 mg/dL (0.6-1.0) Estimated GFR (Cockcroft-Gault) 87.4 BUN/Creatinine Ratio 25 (6-20) Glucose Level 85 mg/dL (70-99) Calcium Level 8.2 mg/dL (8.5-10.1) Total Bilirubin 0.3 mg/dL (0.2-1.0) Aspartate Amino Transf (AST/SGOT) 32 U/L (15-37) Alanine Aminotransferase (ALT/SGPT) 25 U/L (14-59) Alkaline Phosphatase 48 U/L (46-116) Total Protein 6.1 g/dL (6.4-8.2) Albumin 2.5 g/dL (3.4-5.0) Albumin/Globulin Ratio 0.7 (1.0-1.7) Medications Current Medications Heparin Sodium/ Dextrose 250 ml @ 0 mls/hr CONT PRN IV PER PROTOCOL Last administered on 08/11/20at 15:47; Start 08/11/20 at 15:00; Stop 08/11/20 at 16:15; Status DC Heparin Sodium (Porcine) (Heparin Sodium) 1,700 unit PRN Q6HRS PRN IV FOR UFH LEVEL LESS THAN 0.2; Start 08/11/20 at 15:00; Stop 08/11/20 at 16:15; Status DC Iohexol (Omnipaque 350 Mg/ml) 90 ml 1X ONCE IV Last administered on 08/11/20at 15:21; Start 08/11/20 at 15:15; Stop 08/11/20 at 15:16; Status DC Info (CONTRAST GIVEN -- Rx MONITORING) 1 each PRN DAILY PRN MC SEE COMMENTS; Start 08/11/20 at 15:15; Stop 08/13/20 at 15:14; Status DC Enoxaparin Sodium (Lovenox Per Pharmacy Treatment Dosing) 1 each PRN DAILY PRN MC SEE COMMENTS; Start 08/11/20 at 16:15; Status Cancel Enoxaparin Sodium (Lovenox 80mg Syringe) 70 mg Q12HR SQ Last administered on 08/12/20at 09:45; Start 08/11/20 at 16:30; Stop 08/12/20 at 11:00; Status DC Ondansetron HCl (Zofran) 4 mg PRN Q8HRS PRN IV NAUSEA/VOMITING; Start 08/11/20 at 16:30; Stop 08/12/20 at 16:29; Status DC Morphine Sulfate (Morphine Sulfate) 4 mg PRN Q2HR PRN IV PAIN; Start 08/11/20 at 16:30; Stop 08/12/20 at 16:29; Status DC Aspirin (Ecotrin) 81 mg [id number] PO Last administered on 08/15/20 08:48; Start 08/12/20 at 08:00 Trazodone HCl (Desyrel) 100 mg QHS PO Last administered on 08/13/20at 21:00; Start 08/11/20 at 21:00 Citalopram Hydrobromide (CeleXA) 40 mg DAILY PO Last administered on 08/15/20 08:49; Start 08/12/20 at 09:00 Olanzapine (ZyPREXA) 5 mg BID PO Last administered on 08/15/20 08:48; Start 08/11/20 at 21:00 Zinc Sulfate (Orazinc) 220 mg DAILY PO Last administered on 08/15/20 08:49; Start 08/12/20 at 09:00 Guaifenesin (Robitussin Dm) 10 ml PRN Q6HRS PRN PO COUGH Last administered on 08/15/20 08:47; Start 08/11/20 at 17:00 Loperamide HCl (Imodium) 2 mg PRN Q15MIN PRN PO DIARRHEA; Start 08/11/20 at 17:00 Enoxaparin Sodium (Lovenox 40mg Syringe) 40 mg Q24H SQ Last administered on 08/15/20 08:48; Start 08/13/20 at 09:00 Dexamethasone Sodium Phosphate (Decadron) 4 mg DAILY IVP Last administered on 08/15/20at 08:48; Start 08/12/20 at 09:00 Remdesivir 200 mg/ Sodium Chloride 210 ml @ 210 mls/hr 1X ONCE IV Last administered on 08/12/20at 09:46; Start 08/12/20 at 10:00; Stop 08/12/20 at 10:59; Status DC Remdesivir 100 mg/ Sodium Chloride 230 ml @ 460 mls/hr Q24H IV Last administered on 08/14/20at 11:35; Start 08/13/20 at 10:00; Stop 08/16/20 at 10:29 Lisinopril (Prinivil) 2.5 mg BID PO Last administered on 08/14/20at 20:54; Start 08/14/20 at 12:30; Stop 08/15/20 at 08:16; Status DC Atorvastatin Calcium (Lipitor) 40 mg QHS PO Last administered on 08/14/20at 20:5 4; Start 08/14/20 at 21:00 Lisinopril (Prinivil) 10 mg BID PO Last administered on 08/15/20at 08:49; Start 08/15/20 at 09:00 Active Scripts Active Cyclobenzaprine Hcl 10 Mg Tablet 1 Tab PO TID Diclofenac Potassium 50 Mg Tablet 1 Tab PO BID Medrol (Methylprednisolone) 4 Mg Tab.ds.pk 1 Pkg PO UD Reported Vraylar (Cariprazine Hydrochloride) 3 Mg Capsule 3 Mg PO Celexa (Citalopram Hydrobromide) 40 Mg Tablet 1 Tab PO DAILY Trazodone Hcl 100 Mg Tablet 1 Tab PO QHS Vitals/I & O Vital Sign - Last 24 Hours 08/14/20 08/14/20 08/14/20 08/14/20 11:00 13:10 15:00 19:50 Temp 98.0 98.2 97.8 98.0 98.2 97.8 Pulse 67 67 76 57 Resp 20 18 21 B/P (MAP) 138/69 (92) 157/72 148/71 (96) 162/73 (102) Pulse Ox 94 96 92 O2 Delivery Room Air Room Air Room Air 08/14/20 08/14/20 08/14/20 08/15/20 19:50 20:54 23:51 03:40 Temp 98.0 98.1 98.0 98.1 Pulse 57 51 72 Resp 22 22 B/P (MAP) 162/73 161/72 (101) 176/56 (96) Pulse Ox 92 94 O2 Delivery Room Air Room Air Room Air 08/15/20 08/15/20 07:00 08:49 Temp 98.0 98.0 Pulse 56 56 Resp 22 B/P (MAP) 201/85 (123) 201/85 Pulse Ox 94 Intake and Output 08/14/20 08/14/20 08/15/20 15:00 23:00 07:00 Intake Total 240 ml 480 ml 540 ml Output Total 1100 ml 250 ml Balance 240 ml -620 ml 290 ml Justicifation of Admission Dx: Justifications for Admission: Justification of Admission Dx: Yes MARIANNE MADRIGAL MD August 15, 2020 10:12
[2020-08-15] MEDS: REMDESIVIR 100mg in NORMAL SALINE 250ML X 4 DAYS IV SCH (10:58)
[2020-08-15 11:00] VITALS: BP 181/81
[2020-08-15] MEDS ORDERED: amLODIPine BESYLATE 5 MG TABLET PO SCH (13:00)
[2020-08-15 15:46] VITALS: BP 179/85
[2020-08-15] MEDS: amLODIPine BESYLATE 5 MG TABLET PO SCH (16:10)
[2020-08-15] MEDS: POTASSIUM CL 20MEQ IN D5W 1,000 ML IV SCH (16:13)
[2020-08-15 19:25] VITALS: BP 170/78
[2020-08-15] MEDS: traZODone 100 MG TABLET. PO SCH (21:00)
[2020-08-15] MEDS: ATORVASTATIN CALCIUM 40 MG TABLET. PO SCH (22:01)
[2020-08-15 23:40] VITALS: BP 124/80
[2020-08-16 04:30] VITALS: BP 192/85
[2020-08-16] MEDS: POTASSIUM CL 20MEQ IN D5W 1,000 ML IV SCH ×2 (04:56→06:10)
[2020-08-16 05:12] LABS: HEMATOCRIT 42.7 % (36.0-47.0); HEMOGLOBIN 14.1 g/dL (12.0-15.5); RED BLOOD COUNT 4.94 x10^6/uL (3.50-5.40); RED CELL DISTRIBUTION WIDTH 13.4 % (11.5-14.5); WHITE BLOOD COUNT 7.8 x10^3/uL (4.0-11.0)
[2020-08-16] MEDS: guaiFENesin DM 200MG/20MG 10 ML SYRUP PO PRN (05:23)
[2020-08-16 05:47] LABS: ALBUMIN 2.8 g/dL (3.4-5.0); ALBUMIN/GLOBULIN RATIO 0.7 (1.0-1.7); CALCIUM 8.3 mg/dL (8.5-10.1); CREATININE 0.7 mg/dL (0.6-1.0); GFR 101.9; POTASSIUM 3.4 mmol/L (3.5-5.1); TOTAL BILIRUBIN 0.3 mg/dL (0.2-1.0); TOTAL PROTEIN 6.6 g/dL (6.4-8.2)
[2020-08-16 07:00] VITALS: BP 186/86
[2020-08-16] MEDS: ZINC SULFATE 220 MG CAPSULE. PO SCH (09:28)
[2020-08-16] MEDS: ASPIRIN ENTERIC COATED 81 MG TABLET.DR. PO SCH (09:28)
[2020-08-16] MEDS: OLANZapine 5 MG TABLET PO SCH (09:28)
[2020-08-16] MEDS: CITALOPRAM 20 MG TABLET. PO SCH (09:28)
[2020-08-16] MEDS: REMDESIVIR 100mg in NORMAL SALINE 250ML X 4 DAYS IV SCH (09:29)
[2020-08-16] MEDS: amLODIPine BESYLATE 5 MG TABLET PO SCH (09:29)
[2020-08-16] MEDS: DEXAMETHASONE SOD PHOS 4 MG/ML VIAL IVP SCH (09:29)
[2020-08-16] MEDS: LISINOPRIL 10 MG TABLET PO SCH (09:30)
[2020-08-16] MEDS: ENOXAPARIN 40 MG/0.4 ML SYRINGE. SQ SCH (09:32)
--- NOTE | 2020-08-16 10:18 | PDOC ---
PROGRESS NOTES Date of Service: DATE: 08/16/20 TIME: 10:25 Chief Complaint Chief Complaint IMPRESSION Chest pain - due to cough, and viral pneumonia from COVID, will trend troponins. NSTEMI: suspect type 2 initial troponin at 0.56 with associated covid-19 and cocaine abuse. CTA negative for PE. EKG SR with with LVH NSTEMI - likely type 2 demand ischemia, initial trop 0.56. CTPA negative for PE. EKG SR with with LVH, no acute changes by comparison. D/w cardiology will start therapeutic lovenox Covid-19 pneumonia - now with significant hypoxia. Will continue supportive care. O2 saturations dropped, will initiate steroids and remdesivir Diarrhea/vomiting with fever and anosmia - COVID related, CONTINUEV supportive care. HTN - no home meds, LABILE , uncontrolled HLD - no meds Hx of ETOH and cocaine abuse - counseled on cessation COCAINE POS UDS Hx of anxiety/depression and SI - has BP disorder meds, will replace vraylar w ith zyprexa, trazodone PLAN FEN - Regular diet PPX - lovenox FULL CODE DIspo - inpatient for above Cont steroids and remdesivir for Moderately severe COVID 19 CVC BED D/W RN D/C HOME TODAY 08-16 ON room air Cont steroids FINISH remdesivir day 08/19 for Moderately severe COVID 19 CVC BED, INC ACTIVITY START LISINOPRIL 5 MG PO BID NSTEMI: suspect type 2 initial troponin at 0.56 with associated covid-19 and cocaine abuse. CTA negative for PE. EKG SR with with LVH LIPITOR 40 MG PO HS d/w rn D/W RN 08-15 ON room air Cont steroids and remdesivir day 07/20 for Moderately severe COVID 19 CVC BED, INC ACTIVITY START LISINOPRIL 5 MG PO BID NSTEMI: suspect type 2 initial troponin at 0.56 with associated covid-19 and cocaine abuse. CTA negative for PE. EKG SR with with LVH LIPITOR 40 MG PO HS d/w rn D/W RN 08/14 ON 3 LITERS NC LAST NIGHT Cont steroids and remdesivir for Moderately severe COVID 19 CVC BED, INC ACTIVITY START LISINOPRIL 2.5 MG PO BID NSTEMI: suspect type 2 initial troponin at 0.56 with associated covid-19 and cocaine abuse. CTA negative for PE. EKG SR with with LVH LIPITOR 40 MG PO HS History of Present Illness History of Present Illness Ms Mcadams is a 65 yo female w/ PMHx HTN, HLD, anxiety, depression, ETOH and cocaine abuse who presents to the ED on 08/11/2020 for complains of fever and cough that started on 08/06/2020. Reports of fever chills with associated nausea vomiting and diarrhea that began over the past day. She also notes anosmia and some loss of appetite. She notes sharp chest pain with associated coughing. She notes a Covid exposure about a week ago from a friend who stayed with her after her discharge from the hospital for Covid and she was unaware of this. In ED she is visibly uncomfortable and itching. ED staff noted she was in respiratory distress and desaturated to 88% on room air was placed on O2. EKG appears sinus tachycardia with rate of 96 bpm left axis deviation. Of S1, S2-S3 pattern, left anterior fascicular block. Similar to prior EKG. She tested +covid-19 per rapid test. She does endorse heavy cocaine and alcohol use history but notes a lot her last use was 4 days ago. WBC 5.1, Hb 14.6, platelets 217, NA 140, K4, BUN 7, CR 1, glucose 103, CK 229, albumin 3.1, NT-Pro-BNP 31, urine drug screen positive for cocaine, Troponin 0.566 Given lovenox and admitted for further care. 08/12: Febrile to 101.5F overnight. Now requiring oxygen with desat to 86% overnight. Has appetite, still with diarrhea. Trop minimally elevated. No chest pain. Remdesivir day 1 T-max 100.6 F overnight. O2 requirements remain between 2 to 3 L. Still has appetite still with diarrhea. No chest pain. Plan: Cont steroids and remdesivir for Moderately severe COVID 19 Vitals Vitals Vital Signs Date Time Temp Pulse Resp B/P (MAP) Pulse Ox O2 Delivery O2 Flow Rate FiO2 08/16/20 09:30 53 186/86 08/16/20 08:00 Room Air 08/16/20 07:00 97.4 20 94 97.4 Physical Exam General: Alert, Oriented X3, Cooperative, No acute distress Heart: Regular rate (SR), Normal S1, Normal S2, Other (2/y ssytolic murmur to LLS border) Lungs: Clear Abdomen: Normal bowel sounds, Soft, No tenderness Extremities: No cyanosis, No edema Skin: No breakdown, No significant lesion Labs LABS Laboratory Tests Test 08/16/20 05:00 White Blood Count 7.8 x10^3/uL (4.0-11.0) Red Blood Count 4.94 x10^6/uL (3.50-5.40) Hemoglobin 14.1 g/dL (12.0-15.5) Hematocrit 42.7 % (36.0-47.0) Mean Corpuscular Volume 87 fL (79-100) Mean Corpuscular Hemoglobin 29 pg (25-35) Mean Corpuscular Hemoglobin Concent 33 g/dL (31-37) Red Cell Distribution Width 13.4 % (11.5-14.5) Platelet Count 503 x10^3/uL (140-400) Sodium Level 147 mmol/L (136-145) Potassium Level 3.4 mmol/L (3.5-5.1) Chloride Level 108 mmol/L (98-107) Carbon Dioxide Level 29 mmol/L (21-32) Anion Gap 10 (6-14) Blood Urea Nitrogen 14 mg/dL (7-20) Creatinine 0.7 mg/dL (0.6-1.0) Estimated GFR (Cockcroft-Gault) 101.9 BUN/Creatinine Ratio 20 (6-20) Glucose Level 107 mg/dL (70-99) Calcium Level 8.3 mg/dL (8.5-10.1) Total Bilirubin 0.3 mg/dL (0.2-1.0) Aspartate Amino Transf (AST/SGOT) 27 U/L (15-37) Alanine Aminotransferase (ALT/SGPT) 29 U/L (14-59) Alkaline Phosphatase 57 U/L (46-116) Total Protein 6.6 g/dL (6.4-8.2) Albumin 2.8 g/dL (3.4-5.0) Albumin/Globulin Ratio 0.7 (1.0-1.7) Assessment and Plan Assessmemt and Plan Problems Medical Problems: (1) Acute respiratory failure with hypoxia Status: Acute (2) COVID-19 Status: Acute (3) NSTEMI (non-ST elevated myocardial infarction) Status: Acute Comment Review of Relevant I have reviewed the following items frank (where applicable) has been applied. Labs Laboratory Tests Test 08/15/20 08:25 08/16/20 05:00 White Blood Count 7.4 x10^3/uL (4.0-11.0) 7.8 x10^3/uL (4.0-11.0) Red Blood Count 4.76 x10^6/uL (3.50-5.40) 4.94 x10^6/uL (3.50-5.40) Hemoglobin 13.8 g/dL (12.0-15.5) 14.1 g/dL (12.0-15.5) Hematocrit 41.1 % (36.0-47.0) 42.7 % (36.0-47.0) Mean Corpuscular Volume 86 fL (79-100) 87 fL (79-100) Mean Corpuscular Hemoglobin 29 pg (25-35) 29 pg (25-35) Mean Corpuscular Hemoglobin Concent 34 g/dL (31-37) 33 g/dL (31-37) Red Cell Distribution Width 13.5 % (11.5-14.5) 13.4 % (11.5-14.5) Platelet Count 437 x10^3/uL (140-400) 503 x10^3/uL (140-400) Neutrophils (%) (Auto) 69 % (31-73) Lymphocytes (%) (Auto) 21 % (24-48) Monocytes (%) (Auto) 10 % (0-9) Eosinophils (%) (Auto) 0 % (0-3) Basophils (%) (Auto) 1 % (0-3) Neutrophils # (Auto) 5.1 x10^3/uL (1.8-7.7) Lymphocytes # (Auto) 1.5 x10^3/uL (1.0-4.8) Monocytes # (Auto) 0.7 x10^3/uL (0.0-1.1) Eosinophils # (Auto) 0.0 x10^3/uL (0.0-0.7) Basophils # (Auto) 0.0 x10^3/uL (0.0-0.2) Sodium Level 150 mmol/L (136-145) 147 mmol/L (136-145) Potassium Level 3.8 mmol/L (3.5-5.1) 3.4 mmol/L (3.5-5.1) Chloride Level 111 mmol/L (98-107) 108 mmol/L (98-107) Carbon Dioxide Level 30 mmol/L (21-32) 29 mmol/L (21-32) Anion Gap 9 (6-14) 10 (6-14) Blood Urea Nitrogen 20 mg/dL (7-20) 14 mg/dL (7-20) Creatinine 0.8 mg/dL (0.6-1.0) 0.7 mg/dL (0.6-1.0) Estimated GFR (Cockcroft-Gault) 87.4 101.9 BUN/Creatinine Ratio 25 (6-20) 20 (6-20) Glucose Level 85 mg/dL (70-99) 107 mg/dL (70-99) Calcium Level 8.2 mg/dL (8.5-10.1) 8.3 mg/dL (8.5-10.1) Total Bilirubin 0.3 mg/dL (0.2-1.0) 0.3 mg/dL (0.2-1.0) Aspartate Amino Transf (AST/SGOT) 32 U/L (15-37) 27 U/L (15-37) Alanine Aminotransferase (ALT/SGPT) 25 U/L (14-59) 29 U/L (14-59) Alkaline Phosphatase 48 U/L (46-116) 57 U/L (46-116) Total Protein 6.1 g/dL (6.4-8.2) 6.6 g/dL (6.4-8.2) Albumin 2.5 g/dL (3.4-5.0) 2.8 g/dL (3.4-5.0) Albumin/Globulin Ratio 0.7 (1.0-1.7) 0.7 (1.0-1.7) Laboratory Tests Test 08/16/20 05:00 White Blood Count 7.8 x10^3/uL (4.0-11.0) Red Blood Count 4.94 x10^6/uL (3.50-5.40) Hemoglobin 14.1 g/dL (12.0-15.5) Hematocrit 42.7 % (36.0-47.0) Mean Corpuscular Volume 87 fL (79-100) Mean Corpuscular Hemoglobin 29 pg (25-35) Mean Corpuscular Hemoglobin Concent 33 g/dL (31-37) Red Cell Distribution Width 13.4 % (11.5-14.5) Platelet Count 503 x10^3/uL (140-400) Sodium Level 147 mmol/L (136-145) Potassium Level 3.4 mmol/L (3.5-5.1) Chloride Level 108 mmol/L (98-107) Carbon Dioxide Level 29 mmol/L (21-32) Anion Gap 10 (6-14) Blood Urea Nitrogen 14 mg/dL (7-20) Creatinine 0.7 mg/dL (0.6-1.0) Estimated GFR (Cockcroft-Gault) 101.9 BUN/Creatinine Ratio 20 (6-20) Glucose Level 107 mg/dL (70-99) Calcium Level 8.3 mg/dL (8.5-10.1) Total Bilirubin 0.3 mg/dL (0.2-1.0) Aspartate Amino Transf (AST/SGOT) 27 U/L (15-37) Alanine Aminotransferase (ALT/SGPT) 29 U/L (14-59) Alkaline Phosphatase 57 U/L (46-116) Total Protein 6.6 g/dL (6.4-8.2) Albumin 2.8 g/dL (3.4-5.0) Albumin/Globulin Ratio 0.7 (1.0-1.7) Medications Current Medications Heparin Sodium/ Dextrose 250 ml @ 0 mls/hr CONT PRN IV PER PROTOCOL Last administered on 08/11/20at 15:47; Start 08/11/20 at 15:00; Stop 08/11/20 at 16:15; Status DC Heparin Sodium (Porcine) (Heparin Sodium) 1,700 unit PRN Q6HRS PRN IV FOR UFH LEVEL LESS THAN 0.2; Start 08/11/20 at 15:00; Stop 08/11/20 at 16:15; Status DC Iohexol (Omnipaque 350 Mg/ml) 90 ml 1X ONCE IV Last administered on 08/11/20at 15:21; Start 08/11/20 at 15:15; Stop 08/11/20 at 15:16; Status DC Info (CONTRAST GIVEN -- Rx MONITORING) 1 each PRN DAILY PRN MC SEE COMMENTS; Start 08/11/20 at 15:15; Stop 08/13/20 at 15:14; Status DC Enoxaparin Sodium (Lovenox Per Pharmacy Treatment Dosing) 1 each PRN DAILY PRN MC SEE COMMENTS; Start 08/11/20 at 16:15; Status Cancel Enoxaparin Sodium (Lovenox 80mg Syringe) 70 mg Q12HR SQ Last administered on 08/12/20at 09:45; Start 08/11/20 at 16:30; Stop 08/12/20 at 11:00; Status DC Ondansetron HCl (Zofran) 4 mg PRN Q8HRS PRN IV NAUSEA/VOMITING; Start 08/11/20 at 16:30; Stop 08/12/20 at 16:29; Status DC Morphine Sulfate (Morphine Sulfate) 4 mg PRN Q2HR PRN IV PAIN; Start 08/11/20 at 16:30; Stop 08/12/20 at 16:29; Status DC Aspirin (Ecotrin) 81 mg [id number] PO Last administered on 08/16/20at 09:28; Start 08/12/20 at 08:00 Trazodone HCl (Desyrel) 100 mg QHS PO Last administered on 08/13/20at 21:00; Start 08/11/20 at 21:00 Citalopram Hydrobromide (CeleXA) 40 mg DAILY PO Last administered on 08/16/20 09:28; Start 08/12/20 at 09:00 Olanzapine (ZyPREXA) 5 mg BID PO Last administered on 08/16/20 09:28; Start 08/11/20 at 21:00 Zinc Sulfate (Orazinc) 220 mg DAILY PO Last administered on 08/16/20 09:28; Start 08/12/20 at 09:00 Guaifenesin (Robitussin Dm) 10 ml PRN Q6HRS PRN PO COUGH Last administered on 08/16/20at 05:23; Start 08/11/20 at 17:00 Loperamide HCl (Imodium) 2 mg PRN Q15MIN PRN PO DIARRHEA; Start 08/11/20 at 17:00 Enoxaparin Sodium (Lovenox 40mg Syringe) 40 mg Q24H SQ Last administered on 08/16/20at 09:32; Start 08/13/20 at 09:00 Dexamethasone Sodium Phosphate (Decadron) 4 mg DAILY IVP Last administered on 08/16/20 09:29; Start 08/12/20 at 09:00 Remdesivir 200 mg/ Sodium Chloride 210 ml @ 210 mls/hr 1X ONCE IV Last administered on 08/12/20at 09:46; Start 08/12/20 at 10:00; Stop 08/12/20 at 10:59; Status DC Remdesivir 100 mg/ Sodium Chloride 230 ml @ 460 mls/hr Q24H IV Last administe red on 08/16/20at 09:29; Start 08/13/20 at 10:00; Stop 08/16/20 at 10:29 Lisinopril (Prinivil) 2.5 mg BID PO Last administered on 08/14/20at 20:54; Start 08/14/20 at 12:30; Stop 08/15/20 at 08:16; Status DC Atorvastatin Calcium (Lipitor) 40 mg QHS PO Last administered on 08/15/20 22:01; Start 08/14/20 at 21:00 Lisinopril (Prinivil) 10 mg BID PO Last administered on 08/16/20at 09:30; Start 08/15/20 at 09:00 Amlodipine Besylate (Norvasc) 5 mg DAILY PO Last administered on 08/15/20at 13:12; Start 08/15/20 at 13:00; Stop 08/15/20 at 15:53; Status DC Potassium Chloride/Dextrose 1,000 ml @ 75 mls/hr [id number] IV Last administered on 08/16/20 06:10; Start 08/15/20 at 16:00 Amlodipine Besylate (Norvasc) 10 mg DAILY PO Last administered on 08/16/20at 09:29; Start 08/15/20 at 16:00 Active Scripts Active Cyclobenzaprine Hcl 10 Mg Tablet 1 Tab PO TID Diclofenac Potassium 50 Mg Tablet 1 Tab PO BID Medrol (Methylprednisolone) 4 Mg Tab.ds.pk 1 Pkg PO UD Reported Vraylar (Cariprazine Hydrochloride) 3 Mg Capsule 3 Mg PO Celexa (Citalopram Hydrobromide) 40 Mg Tablet 1 Tab PO DAILY Trazodone Hcl 100 Mg Tablet 1 Tab PO QHS Vitals/I & O Vital Sign - Last 24 Hours 08/15/20 08/15/20 08/15/20 08/15/20 11:00 13:12 15:46 16:10 Temp 96.8 98.1 96.8 98.1 Pulse 51 85 59 59 Resp 20 20 B/P (MAP) 181/81 (114) 181/81 179/85 (116) 179/85 Pulse Ox 94 94 O2 Delivery Nasal Cannula Nasal Cannula 08/15/20 08/15/20 08/15/20 08/15/20 19:25 20:00 22:01 23:40 Temp 97.0 97.7 97.0 97.7 Pulse 64 64 67 Resp 24 22 B/P (MAP) 170/78 (108) 170/78 124/80 (95) Pulse Ox 95 96 O2 Delivery Room Air Room Air Room Air 08/16/20 08/16/20 08/16/20 08/16/20 03:00 04:30 07:00 08:00 Temp 97.1 97.4 97.1 97.4 Pulse 60 53 Resp 22 20 B/P (MAP) 192/85 (120) 186/86 (119) Pulse Ox 93 94 O2 Delivery Room Air Room Air Nasal Cannula Room Air 08/16/20 08/16/20 09:29 09:30 Pulse 53 53 B/P (MAP) 186/86 186/86 Intake and Output 08/15/20 08/15/20 08/16/20 14:52 22:52 06:52 Intake Total 180 ml 1460 ml Output Total 200 ml 2500 ml Balance -20 ml -1040 ml Justicifation of Admission Dx: Justifications for Admission: Justification of Admission Dx: Yes MARIANNE MADRIGAL MD August 16, 2020 10:18
--- NOTE | 2020-08-16 11:31 | PDOC3 ---
Discharge Summary Date of Admission: Aug 11, 2020 Date of Discharge: August 16, 2020 Follow-Up: 3-5 days Admitting Diagnosis comment: hpi Ms Mcadams is a 65 yo female w/ PMHx HTN, HLD, anxiety, depression, ETOH and cocaine abuse who presented to the ED on 08/11/2020 for complains of fever and cough that started on 08/06/2020. Reports of fever chills with associated nausea vomiting and diarrhea that began over the past day. She also notes anosmia and some loss of appetite. She notes sharp chest pain with associated coughing. She notes a Covid exposure about a week ago from a friend who stayed with her after her discharge from the hospital for Covid and she was unaware of this. In ED she is visibly uncomfortable and itching. ED staff noted she was in respiratory distress and desaturated to 88% on room air was placed on O2. EKG appears sinus tachycardia with rate of 96 bpm left axis deviation. Of S1, S2-S3 pattern, left anterior fascicular block. Similar to prior EKG. She tested +covid-19 per rapid test. She does endorse heavy cocaine and alcohol use history but notes a lot her last use was 4 days ago. WBC 5.1, Hb 14.6, platelets 217, NA 140, K4, BUN 7, CR 1, glucose 103, CK 229, albumin 3.1, NT-Pro-BNP 31, urine drug screen positive for cocaine, Troponin 0.566 Given lovenox and admitted for further care. D/C CONDITION GOOD MEDS SEE MAR CONSULTS CARDIOLOGY Complications none F/U CARDIOLOGY 2 WEEKS, PCP THIS WEEK DISCHARGE DX Chief Complaint IMPRESSION Chest pain - due to cough, and viral pneumonia from COVID, will trend troponins. NSTEMI: suspect type 2 initial troponin at 0.56 with associated covid-19 and cocaine abuse. CTA negative for PE. EKG SR with with LVH NSTEMI - likely type 2 demand ischemia, initial trop 0.56. CTPA negative for PE. EKG SR with with LVH, no acute changes by comparison. D/w cardiology will start therapeutic lovenox Covid-19 pneumonia - now with significant hypoxia. Will continue supportive care. O2 saturations dropped, will initiate steroids and remdesivir Diarrhea/vomiting with fever and anosmia - COVID related, CONTINUEV supportive care. HTN - no home meds, LABILE , uncontrolled HLD - no meds Hx of ETOH and cocaine abuse - counseled on cessation COCAINE POS UDS Hx of anxiety/depression and SI - has BP disorder meds, will replace vraylar with zyprexa, trazodone PLAN FEN - Regular diet PPX - lovenox FULL CODE DIspo - inpatient for above Cont steroids and remdesivir for Moderately severe COVID 19 CVC BED D/W RN D/C HOME TODAY 08-16 ON room air Cont steroids FINISH remdesivir day 08/19 for Moderately severe COVID 19 CVC BED, INC ACTIVITY START LISINOPRIL 5 MG PO BID NSTEMI: suspect type 2 initial troponin at 0.56 with associated covid-19 and cocaine abuse. CTA negative for PE. EKG SR with with LVH LIPITOR 40 MG PO HS d/w rn D/C PLANNING 35 MIN D/W RN 08-15 ON room air Cont steroids and remdesivir day 07/20 for Moderately severe COVID 19 CVC BED, INC ACTIVITY START LISINOPRIL 5 MG PO BID NSTEMI: suspect type 2 initial troponin at 0.56 with associated covid-19 and cocaine abuse. CTA negative for PE. EKG SR with with LVH LIPITOR 40 MG PO HS d/w rn D/W RN 08/14 ON 3 LITERS NC LAST NIGHT Cont steroids and remdesivir for Moderately severe COVID 19 CVC BED, INC ACTIVITY START LISINOPRIL 2.5 MG PO BID NSTEMI: suspect type 2 initial troponin at 0.56 with associated covid-19 and cocaine abuse. CTA negative for PE. EKG SR with with LVH LIPITOR 40 MG PO HS History of Present Illness History of Present Illness Ms Mcadams is a 65 yo female w/ PMHx HTN, HLD, anxiety, depression, ETOH and cocaine abuse who presents to the ED on 08/11/2020 for complains of fever and cough that started on 08/06/2020. Reports of fever chills with associated nausea vomiting and diarrhea that began over the past day. She also notes anosmia and some loss of appetite. She notes sharp chest pain with associated coughing. She notes a Covid exposure about a week ago from a friend who stayed with her after her discharge from the hospital for Covid and she was unaware of this. In ED she is visibly uncomfortable and itching. ED staff noted she was in respiratory distress and desaturated to 88% on room air was placed on O2. EKG appears sinus tachycardia with rate of 96 bpm left axis deviation. Of S1, S2-S3 pattern, left anterior fascicular block. Similar to prior EKG. She tested +covid-19 per rapid test. She does endorse heavy cocaine and alcohol use history but notes a lot her last use was 4 days ago. WBC 5.1, Hb 14.6, platelets 217, NA 140, K4, BUN 7, CR 1, glucose 103, CK 229, albumin 3.1, NT-Pro-BNP 31, urine drug screen positive for cocaine, Troponin 0.566 Given lovenox and admitted for further care. 08/12: Febrile to 101.5F overnight. Now requiring oxygen with desat to 86% overnight. Has appetite, still with diarrhea. Trop minimally elevated. No chest pain. Remdesivir day 1 T-max 100.6 F overnight. O2 requirements remain between 2 to 3 L. Still has appetite still with diarrhea. No chest pain. Plan: Cont steroids and remdesivir for Moderately severe COVID 19 Vitals Vitals Vital Signs Date Time Temp Pulse Resp B/P (MAP) Pulse Ox O2 Delivery O2 Flow Rate FiO2 08/16/20 09:30 53 186/86 08/16/20 08:00 Room Air 08/16/20 07:00 97.4 20 94 97.4 Physical Exam General: Alert, Oriented X3, Cooperative, No acute distress Heart: Regular rate (SR), Normal S1, Normal S2, Other (2/y ssytolic murmur to LLS border) Lungs: Clear Abdomen: Normal bowel sounds, Soft, No tenderness Extremities: No cyanosis, No edema Skin: No breakdown, No significant lesion FINAL DIAGNOSIS Problems Medical Problems: (1) Acute respiratory failure with hypoxia Status: Acute (2) COVID-19 Status: Acute (3) NSTEMI (non-ST elevated myocardial infarction) Status: Acute Brief Hospital Course Ms. Zuniga is a 65 old [sex] who presented with [ ] CONDITION AT DISCHARGE: Improved Discharge Medications Current Medications Heparin Sodium/ Dextrose 250 ml @ 0 mls/hr CONT PRN IV PER PROTOCOL Last administered on 08/11/20at 15:47; Start 08/11/20 at 15:00; Stop 08/11/20 at 16:15; Status DC Heparin Sodium (Porcine) (Heparin Sodium) 1,700 unit PRN Q6HRS PRN IV FOR UFH LEVEL LESS THAN 0.2; Start 08/11/20 at 15:00; Stop 08/11/20 at 16:15; Status DC Iohexol (Omnipaque 350 Mg/ml) 90 ml 1X ONCE IV Last administered on 08/11/20at 15:21; Start 08/11/20 at 15:15; Stop 08/11/20 at 15:16; Status DC Info (CONTRAST GIVEN -- Rx MONITORING) 1 each PRN DAILY PRN MC SEE COMMENTS; Start 08/11/20 at 15:15; Stop 08/13/20 at 15:14; Status DC Enoxaparin Sodium (Lovenox Per Pharmacy Treatment Dosing) 1 each PRN DAILY PRN MC SEE COMMENTS; Start 08/11/20 at 16:15; Status Cancel Enoxaparin Sodium (Lovenox 80mg Syringe) 70 mg Q12HR SQ Last administered on 08/12/20at 09:45; Start 08/11/20 at 16:30; Stop 08/12/20 at 11:00; Status DC Ondansetron HCl (Zofran) 4 mg PRN Q8HRS PRN IV NAUSEA/VOMITING; Start 08/11/20 at 16:30; Stop 08/12/20 at 16:29; Status DC Morphine Sulfate (Morphine Sulfate) 4 mg PRN Q2HR PRN IV PAIN; Start 08/11/20 at 16:30; Stop 08/12/20 at 16:29; Status DC Aspirin (Ecotrin) 81 mg [id number] PO Last administered on 08/16/20at 09:28; Start 08/12/20 at 08:00 Trazodone HCl (Desyrel) 100 mg QHS PO Last administered on 08/13/20at 21:00; Start 08/11/20 at 21:00 Citalopram Hydrobromide (CeleXA) 40 mg DAILY PO Last administered on 08/16/20 09:28; Start 08/12/20 at 09:00 Olanzapine (ZyPREXA) 5 mg BID PO Last administered on 08/16/20 09:28; Start 08/11/20 at 21:00 Zinc Sulfate (Orazinc) 220 mg DAILY PO Last administered on 08/16/20 09:28; Start 08/12/20 at 09:00 Guaifenesin (Robitussin Dm) 10 ml PRN Q6HRS PRN PO COUGH Last administered on 08/16/20 05:23; Start 08/11/20 at 17:00 Loperamide HCl (Imodium) 2 mg PRN Q15MIN PRN PO DIARRHEA; Start 08/11/20 at 17:00 Enoxaparin Sodium (Lovenox 40mg Syringe) 40 mg Q24H SQ Last administered on 08/16/20 09:32; Start 08/13/20 at 09:00 Dexamethasone Sodium Phosphate (Decadron) 4 mg DAILY IVP Last administered on 08/16/20 09:29; Start 08/12/20 at 09:00 Remdesivir 200 mg/ Sodium Chloride 210 ml @ 210 mls/hr 1X ONCE IV Last administered on 08/12/20 09:46; Start 08/12/20 at 10:00; Stop 08/12/20 at 10:59; Status DC Remdesivir 100 mg/ Sodium Chloride 230 ml @ 460 mls/hr Q24H IV Last administered on 08/16/20 09:29; Start 08/13/20 at 10:00; Stop 08/16/20 at 10:29; Status DC Lisinopril (Prinivil) 2.5 mg BID PO Last administered on 08/14/20 20:54; Start 08/14/20 at 12:30; Stop 08/15/20 at 08:16; Status DC Atorvastatin Calcium (Lipitor) 40 mg QHS PO Last administered on 08/15/20 22:01; Start 08/14/20 at 21:00 Lisinopril (Prinivil) 10 mg BID PO Last administered on 08/16/20 09:30; Start 08/15/20 at 09:00 Amlodipine Besylate (Norvasc) 5 mg DAILY PO Last administered on 5/1/21at 13:12; Start 08/15/20 at 13:00; Stop 08/15/20 at 15:53; Status DC Potassium Chloride/Dextrose 1,000 ml @ 75 mls/hr [id number] IV Last administered on 08/16/20at 06:10; Start 08/15/20 at 16:00 Amlodipine Besylate (Norvasc) 10 mg DAILY PO Last administered on 08/16/20at 09:29; Start 08/15/20 at 16:00 Active Scripts Active Cyclobenzaprine Hcl 10 Mg Tablet 1 Tab PO TID Diclofenac Potassium 50 Mg Tablet 1 Tab PO BID Medrol (Methylprednisolone) 4 Mg Tab.ds.pk 1 Pkg PO UD Reported Vraylar (Cariprazine Hydrochloride) 3 Mg Capsule 3 Mg PO Celexa (Citalopram Hydrobromide) 40 Mg Tablet 1 Tab PO DAILY Trazodone Hcl 100 Mg Tablet 1 Tab PO QHS Vital Signs Vital Signs Date Time Temp Pulse Resp B/P (MAP) Pulse Ox O2 Delivery O2 Flow Rate FiO2 08/16/20 09:30 53 186/86 08/16/20 08:00 Room Air 08/16/20 07:00 97.4 20 94 97.4 Labs Laboratory Tests Test 08/15/20 08:25 08/16/20 05:00 White Blood Count 7.4 x10^3/uL (4.0-11.0) 7.8 x10^3/uL (4.0-11.0) Red Blood Count 4.76 x10^6/uL (3.50-5.40) 4.94 x10^6/uL (3.50-5.40) Hemoglobin 13.8 g/dL (12.0-15.5) 14.1 g/dL (12.0-15.5) Hematocrit 41.1 % (36.0-47.0) 42.7 % (36.0-47.0) Mean Corpuscular Volume 86 fL (79-100) 87 fL (79-100) Mean Corpuscular Hemoglobin 29 pg (25-35) 29 pg (25-35) Mean Corpuscular Hemoglobin Concent 34 g/dL (31-37) 33 g/dL (31-37) Red Cell Distribution Width 13.5 % (11.5-14.5) 13.4 % (11.5-14.5) Platelet Count 437 x10^3/uL (140-400) 503 x10^3/uL (140-400) Neutrophils (%) (Auto) 69 % (31-73) Lymphocytes (%) (Auto) 21 % (24-48) Monocytes (%) (Auto) 10 % (0-9) Eosinophils (%) (Auto) 0 % (0-3) Basophils (%) (Auto) 1 % (0-3) Neutrophils # (Auto) 5.1 x10^3/uL (1.8-7.7) Lymphocytes # (Auto) 1.5 x10^3/uL (1.0-4.8) Monocytes # (Auto) 0.7 x10^3/uL (0.0-1.1) Eosinophils # (Auto) 0.0 x10^3/uL (0.0-0.7) Basophils # (Auto) 0.0 x10^3/uL (0.0-0.2) Sodium Level 150 mmol/L (136-145) 147 mmol/L (136-145) Potassium Level 3.8 mmol/L (3.5-5.1) 3.4 mmol/L (3.5-5.1) Chloride Level 111 mmol/L (98-107) 108 mmol/L (98-107) Carbon Dioxide Level 30 mmol/L (21-32) 29 mmol/L (21-32) Anion Gap 9 (6-14) 10 (6-14) Blood Urea Nitrogen 20 mg/dL (7-20) 14 mg/dL (7-20) Creatinine 0.8 mg/dL (0.6-1.0) 0.7 mg/dL (0.6-1.0) Estimated GFR (Cockcroft-Gault) 87.4 101.9 BUN/Creatinine Ratio 25 (6-20) 20 (6-20) Glucose Level 85 mg/dL (70-99) 107 mg/dL (70-99) Calcium Level 8.2 mg/dL (8.5-10.1) 8.3 mg/dL (8.5-10.1) Total Bilirubin 0.3 mg/dL (0.2-1.0) 0.3 mg/dL (0.2-1.0) Aspartate Amino Transf (AST/SGOT) 32 U/L (15-37) 27 U/L (15-37) Alanine Aminotransferase (ALT/SGPT) 25 U/L (14-59) 29 U/L (14-59) Alkaline Phosphatase 48 U/L (46-116) 57 U/L (46-116) Total Protein 6.1 g/dL (6.4-8.2) 6.6 g/dL (6.4-8.2) Albumin 2.5 g/dL (3.4-5.0) 2.8 g/dL (3.4-5.0) Albumin/Globulin Ratio 0.7 (1.0-1.7) 0.7 (1.0-1.7) Laboratory Tests Test 08/16/20 05:00 White Blood Count 7.8 x10^3/uL (4.0-11.0) Red Blood Count 4.94 x10^6/uL (3.50-5.40) Hemoglobin 14.1 g/dL (12.0-15.5) Hematocrit 42.7 % (36.0-47.0) Mean Corpuscular Volume 87 fL (79-100) Mean Corpuscular Hemoglobin 29 pg (25-35) Mean Corpuscular Hemoglobin Concent 33 g/dL (31-37) Red Cell Distribution Width 13.4 % (11.5-14.5) Platelet Count 503 x10^3/uL (140-400) Sodium Level 147 mmol/L (136-145) Potassium Level 3.4 mmol/L (3.5-5.1) Chloride Level 108 mmol/L (98-107) Carbon Dioxide Level 29 mmol/L (21-32) Anion Gap 10 (6-14) Blood Urea Nitrogen 14 mg/dL (7-20) Creatinine 0.7 mg/dL (0.6-1.0) Estimated GFR (Cockcroft-Gault) 101.9 BUN/Creatinine Ratio 20 (6-20) Glucose Level 107 mg/dL (70-99) Calcium Level 8.3 mg/dL (8.5-10.1) Total Bilirubin 0.3 mg/dL (0.2-1.0) Aspartate Amino Transf (AST/SGOT) 27 U/L (15-37) Alanine Aminotransferase (ALT/SGPT) 29 U/L (14-59) Alkaline Phosphatase 57 U/L (46-116) Total Protein 6.6 g/dL (6.4-8.2) Albumin 2.8 g/dL (3.4-5.0) Albumin/Globulin Ratio 0.7 (1.0-1.7) Allergies Allergies Coded Allergies Type Severity Reaction Last Updated Verified acetaminophen Allergy Intermediate 07/23/17 Yes hydrocodone Allergy Intermediate 07/23/17 Yes Disposition/Orders: D/C to Home Patient Instructions see pcp this week, go to drug rehab this week Justicifation of Admission Dx: Justifications for Admission: Justification of Admission Dx: Yes MARIANNE MADRIGAL MD August 16, 2020 11:31
[2020-08-16] MEDS ORDERED: ATOR40TA59 PO (11:35)
[2020-08-16] MEDS ORDERED: ASPI-886 PO (11:35)
[2020-08-16] MEDS ORDERED: AMLO-186 PO (11:35)
[2020-08-16] MEDS ORDERED: LISI10TA16 PO (11:35)
[2020-08-16] MEDS ORDERED: DEXA4TAB PO (11:35)
[2020-08-16] MEDS ORDERED: ZINC220C5 PO (11:35)
[2020-08-16] MEDS ORDERED: GUAI5SYR PO (11:35)
--- NOTE | 2020-08-16 11:36 | DISCH ---
DISCHARGE INSTRUCTIONS Condition on Discharge Condition on Discharge: Stable Activity After Discharge Activity Instructions for Disc: Activity as tolerated Lifting Instructions after Dis: No pulling or pushing Exercise Instruction after Dis: Progress as tolerated Driving Instructions after Dis: Do not drive Weight Bearing Status after Di: As tolerated Diet after Discharge Diet after Discharge: Cardiac Diet Texture: Regular Liquid Texture: Thin Liquid Swallowing Supervision: None needed Checks after Discharge Checks after discharge: Check blood press - daily Follow-Up Follow up with: pcp this week,, CARDIOLOGY 2 WEEKS Treatment/Equipment after DC Adaptive Equipment Issued: None MARIANNE MADRIGAL MD August 16, 2020 11:36
[2020-08-16 11:46] VITALS: BP 143/78
[2020-08-16 15:00] VITALS: BP 139/74
--- NOTE | 2020-08-16 16:38 | NUR ---
Patient refusing 6-minute walk prior to discharge despite being educated on importance of the 6-minute walk. Patient says she doesn't need oxygen and that she has an oxygen tank at home. Patient educated on importance of determining amount of oxygen needed to prevent hypoxia and oxygen toxicity. Patient still refusing 6-minute walk. Dr. Langston notified of patient's refusal.
--- NOTE | 2020-08-16 19:55 | NUR ---
Discharge Note: Patient refused 6-minute walk prior to discharge. Upon entering patient's room to begin the discharging process, patient had already discontinued her IV on her own and unhooked herself from the monitor. Minor bleeding and manual pressure held until bleeding stopped. Tip intact and thrown in sharps. Discharge instructions and discharge home medications reviewed with Patient and a copy given. All questions have been answered and understanding verbalized. Patient discharged home via son's private vehicle at approximately 1725.
== END 2020-08-16 17:25 | disposition home or self-care (01) | DRG 177 ==
LOC: ER 10:19 → CVICU 16:04 → 2 SOUTH 08-13 17:00
PROVIDERS: ADMIT Internal Medicine; ATTEND Internal Medicine
PROC: XW033E5 Introduction of Remdesivir Anti-infective into Peripheral Vein, Percutaneous Approach, New Technology Group 5 (ICD-10-PCS; principal; 2020-08-12)
DX: U07.1 COVID-19 (principal); J12.82 Pneumonia due to coronavirus disease 2019; I21.A1 Myocardial infarction type 2; J96.01 Acute respiratory failure with hypoxia; M94.0 Chondrocostal junction syndrome [Tietze]; E78.5 Hyperlipidemia, unspecified; F32.9 Major depressive disorder, single episode, unspecified; F41.9 Anxiety disorder, unspecified; F12.10 Cannabis abuse, uncomplicated; F17.210 Nicotine dependence, cigarettes, uncomplicated; F10.20 Alcohol dependence, uncomplicated; M19.90 Unspecified osteoarthritis, unspecified site; I10 Essential (primary) hypertension; Z79.899 Other long term (current) drug therapy; Z82.49 Family history of ischemic heart disease and other diseases of the circulatory system; Z90.721 Acquired absence of ovaries, unilateral; Z88.5 Allergy status to narcotic agent; Z88.8 Allergy status to other drugs, medicaments and biological substances
CPT/HCPCS: 36415; 71045; 71275; 80048; 80053; 80061; 80307; 81001; 82550; 82728; 82962; 83880; 84484; 85025; 85027; 85379; 87804; 93005; 96365; 96372; 99285; J1100; J1644; J1650; J3480; J7050; Q9967; U0003; U0005; G0378; J7030